=== PATIENT | male | born 1960 | race Caucasian/White ===

== ENCOUNTER → 2016-08-22 | Outpatient (CLI) | payer MEDICAID ==
[2016-08-22 18:40] LABS: ALANINE AMINOTRANSFERASE 26 U/L (21-72); ALBUMIN 3.4 g/dL (3.5-5.0); ALKALINE PHOSPHATASE 143 U/L (38-126); ANION GAP 9 (5-19); ASPARTATE AMINO TRANSFERASE 27 U/L (17-59); BILIRUBIN,TOTAL 0.3 mg/dL (0.2-1.3); BLOOD UREA NITROGEN 24 mg/dL (7-20); CALCIUM 8.9 mg/dL (8.4-10.2); CARBON DIOXIDE 28 mmol/L (22-30); CHLORIDE 100 mmol/L (98-107); CREATININE RESULT 1.35 mg/dL (0.52-1.25); GLUCOSE 75 mg/dL (75-110); POTASSIUM 5.4 mmol/L (3.6-5.0); SODIUM 137.3 mmol/L (137-145); TOTAL PROTEIN 7.3 g/dL (6.3-8.2)
== END ==
LOC: OD 17:09
PROVIDERS: ATTEND Internal Medicine Gastroenterology
DX: K70.31 Alcoholic cirrhosis of liver with ascites (principal)
CPT/HCPCS: 36415; 80048; 80076; 85610

== ENCOUNTER → 2016-09-24 | Outpatient (CLI) | payer MEDICAID ==
[2016-09-24 19:07] LABS: PROTHROMBIN TIME 13.4 SEC (11.4-15.4)
[2016-09-24 19:31] LABS: ALANINE AMINOTRANSFERASE 19 U/L (21-72); ALBUMIN 3.7 g/dL (3.5-5.0); ALKALINE PHOSPHATASE 142 U/L (38-126); ANION GAP 9 (5-19); ASPARTATE AMINO TRANSFERASE 33 U/L (17-59); BILIRUBIN,TOTAL 0.4 mg/dL (0.2-1.3); BLOOD UREA NITROGEN 31 mg/dL (7-20); CALCIUM 9.4 mg/dL (8.4-10.2); CARBON DIOXIDE 26 mmol/L (22-30); CHLORIDE 102 mmol/L (98-107); CREATININE RESULT 1.52 mg/dL (0.52-1.25); GLUCOSE 93 mg/dL (75-110); POTASSIUM 5.9 mmol/L (3.6-5.0); SODIUM 137.3 mmol/L (137-145); TOTAL PROTEIN 7.9 g/dL (6.3-8.2)
== END ==
LOC: OD 17:32
PROVIDERS: ATTEND Internal Medicine Gastroenterology
DX: K70.31 Alcoholic cirrhosis of liver with ascites (principal)
CPT/HCPCS: 36415; 80048; 80076; 85610

== ENCOUNTER → 2017-01-22 | Outpatient (CLI) | payer MEDICAID ==
--- NOTE | 2017-01-22 17:40 | RADIOLOGY REPORT (SQ) ---
EXAM DESCRIPTION: LUMBAR SPINE COMPLETE COMPLETED DATE/TIME: 01/22/2017 5:32 pm REASON FOR STUDY: LUMBAGO WITH SCIATICA, UNSPECIFIED SIDE G89.29 OTHER CHRONIC PAIN M54.40 LUMBAGO WITH SCIATICA, UNSPECIFIED SIDE COMPARISON: None. NUMBER OF VIEWS: Five views including obliques. TECHNIQUE: AP, lateral, oblique, and sacral radiographic images acquired of the lumbar spine. LIMITATIONS: None. FINDINGS: MINERALIZATION: Normal. SEGMENTATION: Normal. No transitional anatomy. ALIGNMENT: Normal. VERTEBRAE: There is a mild compression deformity at L3 with slight compression of the superior endpla te. There is approximately 40% loss of height at L4. Age of these are indeterminate. There is slig ht wedging anteriorly of L1 as well. DISCS: There is mild multilevel spondylosis. Changes are most prominent at L5-S1. POSTERIOR ELEMENTS: Pedicles and facets are intact. No pars defect or posterior arch defects. HARDWARE: None in the spine. PARASPINAL SOFT TISSUES: Normal. PELVIS: Intact as visualized. No fractures or worrisome bone lesions. SI joints intact. OTHER: No other significant finding. IMPRESSION: Multiple wedge deformities in the lumbar spine as described. Changes are most prominent at L4 with there is approximately 40% loss of height. Age of these are indeterminate. TECHNICAL DOCUMENTATION: JOB ID: [id number] [email or web address]- All Rights Reserved
== END ==
LOC: OD 17:10
PROVIDERS: ATTEND Internal Medicine
DX: M54.40 Lumbago with sciatica, unspecified side (principal); G89.29 Other chronic pain
CPT/HCPCS: 72110

== ENCOUNTER → 2017-01-28 | Outpatient (CLI) | payer MEDICAID ==
[2017-01-28 18:03] LABS: ABSOLUTE BASOPHILS # (AUTO) 0.1 10^3/uL (0.0-0.2); ABSOLUTE EOSINOPHILS # (AUTO) 0.5 10^3/uL (0.0-0.6); ABSOLUTE LYMPHOCYTES (AUTO) 2.5 10^3/uL (0.5-4.7); ABSOLUTE MONOCYTES (AUTO) 0.9 10^3/uL (0.1-1.4); ABSOLUTE NEUT (AUTO) 5.3 10^3/uL (1.7-8.2); BASOPHILS % (AUTO) 1.1 % (0-2); EOSINOPHILS % (AUTO) 5.1 % (0-6); HEMATOCRIT 32.5 % (37.9-51.0); HEMOGLOBIN 10.8 g/dL (13.5-17.0); HGB HCT DIFFERENCE -0.1; LYMPHOCYTES % (AUTO) 26.7 % (13-45); MEAN CORPUSCULAR HEMOGLOBIN 31.2 pg (27.0-33.4); MEAN CORPUSCULAR HGB CONC 33.2 g/dL (32.0-36.0); MEAN CORPUSCULAR VOLUME 94 fl (80-97); MONOCYTES % (AUTO) 9.3 % (3-13); RED BLOOD COUNT 3.45 10^6/uL (4.35-5.55); RED CELL DISTRIBUTION WIDTH 13.6 % (11.5-14.0); SEGMENTED NEUTROPHILS % (AUTO) 57.8 % (42-78); WHITE BLOOD COUNT 9.2 10^3/uL (4.0-10.5)
[2017-01-28 18:23] LABS: ALANINE AMINOTRANSFERASE 25 U/L (21-72); ALKALINE PHOSPHATASE 194 U/L (38-126); ANION GAP 10 (5-19); ASPARTATE AMINO TRANSFERASE 29 U/L (17-59); BILIRUBIN,DIRECT 0.4 mg/dL (0.0-0.4); BILIRUBIN,TOTAL 0.4 mg/dL (0.2-1.3); BLOOD UREA NITROGEN 33 mg/dL (7-20); CALCIUM 9.2 mg/dL (8.4-10.2); CARBON DIOXIDE 25 mmol/L (22-30); CHLORIDE 101 mmol/L (98-107); CREATININE RESULT 1.86 mg/dL (0.52-1.25); GLUCOSE 86 mg/dL (75-110); POTASSIUM 4.9 mmol/L (3.6-5.0); SODIUM 136.1 mmol/L (137-145); TOTAL PROTEIN 7.8 g/dL (6.3-8.2)
== END ==
LOC: OD 17:11
PROVIDERS: ATTEND Physician Assistant Surgical
DX: N19 Unspecified kidney failure (principal); K70.31 Alcoholic cirrhosis of liver with ascites
CPT/HCPCS: 36415; 80053; 85025

== ENCOUNTER → 2017-03-29 | Outpatient (CLI) | payer MEDICAID ==
--- NOTE | 2017-03-29 11:48 | RADIOLOGY REPORT (SQ) ---
EXAM DESCRIPTION: U/S RETROPERITON (RENAL/AORTA) COMPLETED DATE/TIME: 03/29/2017 11:34 am REASON FOR STUDY: CKD III (N18.3) N18.3 CHRONIC KIDNEY DISEASE, STAGE 3 (MODERATE) R31.9 HEMATURIA , UNSPECIFIED K74.60 UNSPECIFIED CIRRHOSIS OF LIVER COMPARISON: None. TECHNIQUE: Dynamic and static grayscale images acquired of the kidneys and bladder and recorded on P ACS. Additional selected color Doppler and spectral images recorded. LIMITATIONS: None. FINDINGS: RIGHT KIDNEY: The right kidney measures 9.3 cm in length. Echogenicity is mildly increa sed. No solid or suspicious masses. No hydronephrosis. No calcifications. LEFT KIDNEY: The left kidney measures 9.4 cm in length. Echogenicity is mildly increased. No risa id or suspicious masses. No hydronephrosis. No calcifications. BLADDER: No masses. OTHER FINDINGS: No other significant finding. IMPRESSION: Mild increased echogenicity in both kidneys. No other significant findings. TECHNICAL DOCUMENTATION: JOB ID: [id number] [employer]- All Rights Reserved
== END ==
LOC: RAD 10:54
PROVIDERS: ATTEND Internal Medicine Nephrology
DX: N18.3 Chronic kidney disease, stage 3 (moderate) (principal); R31.9 Hematuria, unspecified; K74.60 Unspecified cirrhosis of liver
CPT/HCPCS: 76770

== ENCOUNTER → 2017-04-04 | Outpatient (CLI) | payer MEDICAID ==
[2017-04-04 18:25] LABS: HEMATOCRIT 32.3 % (37.9-51.0); HEMOGLOBIN 11.3 g/dL (13.5-17.0); HGB HCT DIFFERENCE 1.6; MEAN CORPUSCULAR HEMOGLOBIN 31.7 pg (27.0-33.4); MEAN CORPUSCULAR HGB CONC 34.9 g/dL (32.0-36.0); MEAN CORPUSCULAR VOLUME 91 fl (80-97); RED BLOOD COUNT 3.55 10^6/uL (4.35-5.55); RED CELL DISTRIBUTION WIDTH 13.1 % (11.5-14.0)
[2017-04-04 18:42] LABS: ANION GAP 10 (5-19); BLOOD UREA NITROGEN 24 mg/dL (7-20); CALCIUM 9.9 mg/dL (8.4-10.2); CARBON DIOXIDE 25 mmol/L (22-30); CHLORIDE 98 mmol/L (98-107); CREATININE RESULT 1.35 mg/dL (0.52-1.25); GLUCOSE 109 mg/dL (75-110); POTASSIUM 4.6 mmol/L (3.6-5.0); SODIUM 133.1 mmol/L (137-145)
[2017-04-04 18:46] LABS: APPEARANCE,URINE CLEAR; BILIRUBIN,URINE NEGATIVE (NEGATIVE); GLUCOSE, URINE NEGATIVE (NEGATIVE); KETONES,URINE NEGATIVE (NEGATIVE); LEUKOCYTE ESTERASE,URINE NEGATIVE (NEGATIVE); NITRITE,URINE NEGATIVE (NEGATIVE); PROTEIN,URINE 30 mg/dL (NEGATIVE); URINE SPECIFIC GRAVITY 1.004; UROBILINOGEN,URINE NEGATIVE mg/dL (<2.0)
[2017-04-06 13:38] LABS: CREATININE URINE 35.8 mg/dL (Not Estab.); MICROALBUMIN URINE 93.9 ug/mL (Not Estab.)
== END ==
LOC: OD 17:23
PROVIDERS: ATTEND Physician Assistant Medical
DX: N18.3 Chronic kidney disease, stage 3 (moderate) (principal); E87.5 Hyperkalemia; R31.9 Hematuria, unspecified
CPT/HCPCS: 36415; 80048; 81001; 82043; 82570; 85027

== ENCOUNTER → 2017-04-30 | Outpatient (CLI) | payer MEDICAID ==
--- NOTE | 2017-04-30 11:47 | RADIOLOGY REPORT (SQ) ---
EXAM DESCRIPTION: U/S ABDOMEN COMPLETE W/O DOP COMPLETED DATE/TIME: 04/30/2017 9:28 am REASON FOR STUDY: ALCOHOLIC CIRRHOSIS OF LIVER WITH ASCITES K70.31 ALCOHOLIC CIRRHOSIS OF LIVER WIT H ASCITES COMPARISON: Bilateral renal ultrasound 03/29/2017 TECHNIQUE: Dynamic and static grayscale images acquired of the abdomen and recorded on PACS. Additio nal selected color Doppler and spectral images recorded. LIMITATIONS: Midline bowel gas FINDINGS: PANCREAS: Midline pancreas unremarkable LIVER: No masses. Echotexture normal. LIVER VASCULATURE: Normal directional flow of the main portal vein and hepatic veins. GALLBLADDER: No stones. Normal wall thickness. No pericholecystic fluid. ULTRASOUND-DETECTED MIJARES'S SIGN: Negative. INTRAHEPATIC DUCTS AND COMMON DUCT: There is prominence of the common bile duct at the ted hepatis, common duct measures 9 to 10 mm in diameter. Distal most common duct not well seen. Distal ductal stone or stricture cannot be excluded INFERIOR VENA CAVA: Not well seen AORTA: No aneurysm. RIGHT KIDNEY: Normal size, 9.4 cm in length. Mild increased cortical echogenicity No solid or zheng spicious masses. No hydronephrosis. No calcifications. LEFT KIDNEY: Normal size, 9.4 cm in length mild increased cortical echogenicity No solid or susp icious masses. No hydronephrosis. No calcifications. SPLEEN: Normal size. No solid masses. PERITONEAL AND PLEURAL SPACES: No ascites or effusions. OTHER: No other significant finding. IMPRESSION: Mild extrahepatic biliary ductal dilatation. Distal common duct not well seen. Distal ductal stone or stricture cranial be excluded Mild increased cortical echogenicity both kidneys. TECHNICAL DOCUMENTATION: JOB ID: [id number] [employer]- All Rights Reserved
== END ==
LOC: RAD 08:00
PROVIDERS: ATTEND Internal Medicine Gastroenterology
DX: K70.31 Alcoholic cirrhosis of liver with ascites (principal)
CPT/HCPCS: 76700

== ENCOUNTER → 2017-07-17 | Outpatient (CLI) | payer MEDICAID ==
[2017-07-17 10:53] LABS: HEMOGLOBIN 11.3 g/dL (13.5-17.0); HGB HCT DIFFERENCE 0.9; MEAN CORPUSCULAR HEMOGLOBIN 31.8 pg (27.0-33.4); MEAN CORPUSCULAR HGB CONC 34.3 g/dL (32.0-36.0); MEAN CORPUSCULAR VOLUME 93 fl (80-97); RED BLOOD COUNT 3.56 10^6/uL (4.35-5.55); RED CELL DISTRIBUTION WIDTH 13.6 % (11.5-14.0); WHITE BLOOD COUNT 11.5 10^3/uL (4.0-10.5)
[2017-07-17 10:53] LABS: APPEARANCE,URINE CLEAR; BILIRUBIN,URINE NEGATIVE (NEGATIVE); GLUCOSE, URINE NEGATIVE (NEGATIVE); KETONES,URINE NEGATIVE (NEGATIVE); LEUKOCYTE ESTERASE,URINE NEGATIVE (NEGATIVE); NITRITE,URINE NEGATIVE (NEGATIVE); PROTEIN,URINE NEGATIVE (NEGATIVE); URINE SPECIFIC GRAVITY 1.004; UROBILINOGEN,URINE NEGATIVE mg/dL (<2.0)
[2017-07-17 11:28] LABS: ANION GAP 12 (5-19); BLOOD UREA NITROGEN 18 mg/dL (7-20); CALCIUM 9.6 mg/dL (8.4-10.2); CARBON DIOXIDE 23 mmol/L (22-30); CHLORIDE 103 mmol/L (98-107); CREATININE RESULT 1.37 mg/dL (0.52-1.25); GLUCOSE 92 mg/dL (75-110); POTASSIUM 5.7 mmol/L (3.6-5.0); SODIUM 137.7 mmol/L (137-145)
== END ==
LOC: OD 09:19
PROVIDERS: ATTEND Physician Assistant Medical
DX: E87.5 Hyperkalemia (principal); N18.3 Chronic kidney disease, stage 3 (moderate); R31.9 Hematuria, unspecified
CPT/HCPCS: 36415; 80048; 81001; 84132; 85027

== ENCOUNTER → 2017-10-25 | Outpatient (CLI) | payer MEDICAID ==
[2017-10-25 17:07] LABS: HEMATOCRIT 34.6 % (37.9-51.0); HEMOGLOBIN 11.7 g/dL (13.5-17.0); MEAN CORPUSCULAR HEMOGLOBIN 31.5 pg (27.0-33.4); MEAN CORPUSCULAR HGB CONC 33.8 g/dL (32.0-36.0); MEAN CORPUSCULAR VOLUME 93 fl (80-97); PLATELET COUNT 277 10^3/uL (150-450); RED BLOOD COUNT 3.71 10^6/uL (4.35-5.55); RED CELL DISTRIBUTION WIDTH 13.5 % (11.5-14.0)
[2017-10-25 17:39] LABS: ANION GAP 13 (5-19); BLOOD UREA NITROGEN 23 mg/dL (7-20); CALCIUM 9.8 mg/dL (8.4-10.2); CARBON DIOXIDE 23 mmol/L (22-30); CHLORIDE 99 mmol/L (98-107); GLUCOSE 98 mg/dL (75-110); POTASSIUM 4.8 mmol/L (3.6-5.0); SODIUM 134.9 mmol/L (137-145)
== END ==
LOC: OD 15:47
PROVIDERS: ATTEND Physician Assistant Medical
DX: N18.3 Chronic kidney disease, stage 3 (moderate) (principal); E87.5 Hyperkalemia
CPT/HCPCS: 36415; 80048; 85027

== ENCOUNTER → 2018-03-04 | Outpatient (CLI) | payer MEDICAID ==
[2018-03-04 18:01] LABS: INTERNATIONAL RATION (INR) 1.01; PROTHROMBIN TIME 13.9 SEC (11.4-15.4)
[2018-03-04 18:04] LABS: APPEARANCE,URINE CLEAR; BILIRUBIN,URINE NEGATIVE (NEGATIVE); COLOR,URINE STRAW; GLUCOSE, URINE NEGATIVE (NEGATIVE); KETONES,URINE NEGATIVE (NEGATIVE); LEUKOCYTE ESTERASE,URINE NEGATIVE (NEGATIVE); NITRITE,URINE NEGATIVE (NEGATIVE); PROTEIN,URINE NEGATIVE (NEGATIVE); URINE SPECIFIC GRAVITY 1.005; UROBILINOGEN,URINE NEGATIVE mg/dL (<2.0)
[2018-03-04 18:06] LABS: ABSOLUTE BASOPHILS # (AUTO) 0.1 10^3/uL (0.0-0.2); ABSOLUTE EOSINOPHILS # (AUTO) 0.2 10^3/uL (0.0-0.6); ABSOLUTE LYMPHOCYTES (AUTO) 1.8 10^3/uL (0.5-4.7); ABSOLUTE MONOCYTES (AUTO) 0.9 10^3/uL (0.1-1.4); ABSOLUTE NEUT (AUTO) 5.2 10^3/uL (1.7-8.2); BASOPHILS % (AUTO) 0.9 % (0-2); EOSINOPHILS % (AUTO) 2.6 % (0-6); HEMATOCRIT 31.1 % (37.9-51.0); HEMOGLOBIN 10.9 g/dL (13.5-17.0); LYMPHOCYTES % (AUTO) 22.1 % (13-45); MEAN CORPUSCULAR HEMOGLOBIN 31.7 pg (27.0-33.4); MEAN CORPUSCULAR HGB CONC 34.9 g/dL (32.0-36.0); MEAN CORPUSCULAR VOLUME 91 fl (80-97); MONOCYTES % (AUTO) 11.1 % (3-13); PLATELET COUNT 399 10^3/uL (150-450); RED BLOOD COUNT 3.43 10^6/uL (4.35-5.55); RED CELL DISTRIBUTION WIDTH 12.7 % (11.5-14.0); SEGMENTED NEUTROPHILS % (AUTO) 63.3 % (42-78); TOTAL CELLS COUNTED % (AUTO) 100 %; WHITE BLOOD COUNT 8.2 10^3/uL (4.0-10.5)
[2018-03-04 18:08] LABS: HEMATOCRIT 31.1 % (37.9-51.0); HEMOGLOBIN 10.9 g/dL (13.5-17.0); MEAN CORPUSCULAR HEMOGLOBIN 31.7 pg (27.0-33.4); MEAN CORPUSCULAR HGB CONC 34.9 g/dL (32.0-36.0); MEAN CORPUSCULAR VOLUME 91 fl (80-97); PLATELET COUNT 399 10^3/uL (150-450); RED BLOOD COUNT 3.43 10^6/uL (4.35-5.55); RED CELL DISTRIBUTION WIDTH 12.7 % (11.5-14.0); WHITE BLOOD COUNT 8.2 10^3/uL (4.0-10.5)
[2018-03-04 18:19] LABS: ALANINE AMINOTRANSFERASE 25 U/L (21-72); ALBUMIN 4.1 g/dL (3.5-5.0); ALKALINE PHOSPHATASE 173 U/L (38-126); ASPARTATE AMINO TRANSFERASE 30 U/L (17-59); BILIRUBIN,DIRECT 0.3 mg/dL (0.0-0.4); BILIRUBIN,TOTAL 0.3 mg/dL (0.2-1.3); TOTAL PROTEIN 8.2 g/dL (6.3-8.2)
[2018-03-04 18:21] LABS: ANION GAP 13 (5-19); BLOOD UREA NITROGEN 23 mg/dL (7-20); CARBON DIOXIDE 24 mmol/L (22-30); CHLORIDE 99 mmol/L (98-107); GLUCOSE 95 mg/dL (75-110); SODIUM 136.1 mmol/L (137-145)
== END ==
LOC: OD 17:06
PROVIDERS: ATTEND Physician Assistant Medical
DX: N18.3 Chronic kidney disease, stage 3 (moderate) (principal); E87.5 Hyperkalemia; K70.30 Alcoholic cirrhosis of liver without ascites
CPT/HCPCS: 36415; 80048; 80076; 81001; 85025; 85027; 85610

== ENCOUNTER → 2018-05-28 | Outpatient (CLI) | payer MEDICAID ==
--- NOTE | 2018-05-28 15:35 | RADIOLOGY REPORT (SQ) ---
EXAM DESCRIPTION: NM BONE SCAN LIMITED COMPLETED DATE/TIME: 05/28/2018 2:17 pm REASON FOR STUDY: COLLASPED VERTEBRA, NOT ELSEWHERE CLASSIFIED, THORACIC REGION M48.54XA COLLAPSED VERTEBRA, NEC, THORACIC REGION, INIT COMPARISON: No recent plain films are available for comparison Lumbar spine films of 01/22/2017 RADIONUCLIDE AND DOSE: 19.5 millicuries Tc99m MDP. The route of agent administration: Intravenous. ADDITIONAL DRUGS AND DOSES: None. TECHNIQUE: Routine delayed images at 3 hours post radionuclide injection acquired of the bony skelet on including anterior and posterior whole-body projections and additional focused images as needed. LIMITATIONS: None. FINDINGS: Bandlike increased uptake is present over the T4 level worrisome for acute or subacute com pression fracture vertebral body. Bandlike increased uptake is present at the L4 level worrisome for acute or subacute compression frac ture vertebral body. No increased uptake over the ribs or sternum, no increased uptake over the visualized bony pelvis. IMPRESSION: Bandlike increased uptake at the T4 level, and L4 level worrisome for acute or subacute compression fractures. COMMENT: Quality measure 147: Current bone scan is compared with any available plain radiographs, p rior bone scans, and CT/MRI. TECHNICAL DOCUMENTATION: JOB ID: [id number] [employer]- All Rights Reserved Reading location - IP/workstation name: [email or web address]
== END ==
LOC: RAD 08:10
PROVIDERS: ATTEND Family Medicine
DX: M48.54XA Collapsed vertebra, not elsewhere classified, thoracic region, initial encounter for fracture (principal)
CPT/HCPCS: 78305; A9561; Q9969

== ENCOUNTER → 2018-06-10 | Outpatient (CLI) | payer MEDICAID ==
--- NOTE | 2018-06-10 08:57 | RADIOLOGY REPORT (SQ) ---
EXAM DESCRIPTION: U/S ABDOMEN LIMITED W/O DOP COMPLETED DATE/TIME: 06/10/2018 8:37 am REASON FOR STUDY: CIRRHOSIS(ALCOHOLIC) OF LIVER WITHOUT ASCITES K70.30 ALCOHOLIC CIRRHOSIS OF LIVER WITHOUT ASCITES COMPARISON: Abdominal ultrasound 04/30/2017 CT angio chest 06/29/2010 TECHNIQUE: Dynamic and static grayscale images acquired of the abdomen and recorded on PACS. Additio nal selected color Doppler and spectral images recorded. LIMITATIONS: Midline bowel gas, limited acoustic window FINDINGS: PANCREAS: Midline pancreas unremarkable LIVER: Normal size, nodular contour with mild increased echogenicity likely from diffuse hepatocellul ar disease. No intrahepatic biliary ductal dilatation. No focal masses LIVER VASCULATURE: Normal directional flow of the main portal vein and hepatic veins. GALLBLADDER: Distended, minimal sludge in the gallbladder. No shadowing stones. No gallbladder wall thickening or pericholecystic fluid ULTRASOUND-DETECTED MIJARES'S SIGN: Negative. INTRAHEPATIC DUCTS AND COMMON DUCT: Common bile duct at the ted hepatis is 9 mm in diameter which i s prominent. Distal most common duct not well seen. Distal ductal stone or stricture could not be e xcluded. INFERIOR VENA CAVA: Normal flow. AORTA: No aneurysm. RIGHT KIDNEY: Diffuse cortical thinning, right kidney 9 cm in length with increased cortical echogen icity. No right hydronephrosis. No gross intrarenal stones. PERITONEAL AND RIGHT PLEURAL SPACE: No ascites or effusions. OTHER: No other significant findings. IMPRESSION: In keeping normal size liver with nodular contour worrisome for diffuse hepatocellular d isease/ cirrhosis Distended gallbladder with sludge. And common bile duct prominent. Distal common duct not well seen. Distal ductal stone or stricture could not be excluded. TECHNICAL DOCUMENTATION: JOB ID: [id number] [employer]- All Rights Reserved Reading location - IP/workstation name: [email or web address]
== END ==
LOC: RAD 08:00
PROVIDERS: ATTEND Internal Medicine Gastroenterology
DX: K70.30 Alcoholic cirrhosis of liver without ascites (principal)
CPT/HCPCS: 76705

== ENCOUNTER → 2018-07-29 | Outpatient (CLI) | payer MEDICAID ==
[2018-07-29 10:53] LABS: ANION GAP 9 (5-19); BLOOD UREA NITROGEN 20 mg/dL (7-20); CALCIUM 9.2 mg/dL (8.4-10.2); CARBON DIOXIDE 28 mmol/L (22-30); CHLORIDE 102 mmol/L (98-107); GLUCOSE 99 mg/dL (75-110); POTASSIUM 5.2 mmol/L (3.6-5.0)
== END ==
LOC: OD 10:10
PROVIDERS: ATTEND Orthopaedic Surgery
DX: E87.5 Hyperkalemia (principal)
CPT/HCPCS: 36415; 80048

== ENCOUNTER 2018-07-30 05:39 | Day surgery (SDC) | payer MEDICAID ==
[2018-07-23 11:58] LABS: HEMOGLOBIN 11.9 g/dL (13.5-17.0); MEAN CORPUSCULAR VOLUME 91 fl (80-97); PLATELET COUNT 326 10^3/uL (150-450); RED BLOOD COUNT 3.84 10^6/uL (4.35-5.55); RED CELL DISTRIBUTION WIDTH 13.7 % (11.5-14.0); WHITE BLOOD COUNT 9.8 10^3/uL (4.0-10.5)
--- NOTE | 2018-07-23 12:00 | EKG REPORT ---
SEVERITY:- NORMAL ECG - SINUS RHYTHM : Confirmed by: Heather Phillips 23-Jul-2018 11:59:53
[2018-07-23 12:24] LABS: ANION GAP 15 (5-19); BLOOD UREA NITROGEN 24 mg/dL (7-20); CALCIUM 9.7 mg/dL (8.4-10.2); CARBON DIOXIDE 24 mmol/L (22-30); CHLORIDE 101 mmol/L (98-107); GLUCOSE 88 mg/dL (75-110); SODIUM 140.3 mmol/L (137-145)
[2018-07-23 12:32] LABS: POTASSIUM 6.5 mmol/L (3.6-5.0)
[~2018-07-30 05:39] MED LIST: CEFAZOLIN 2 GM/D5W RTU 2 GM/50 ML RTUPB IV ONE; CEFAZOLIN 2 GM/D5W RTU 2 GM/50 ML RTUPB IV PRN; LACTATED RINGERS 1000 ML IV PRN; LIDOCAINE 0.5% INJ-PF (5 MG/ML) 50 ML SDV SUBCUT PRN
[2018-07-30] MEDS ORDERED: BUPIVACAINE HCL 0.5 % INJ/PF 30 ML SDV ONE (06:39)
[2018-07-30] MEDS ORDERED: LIDOCAINE 1% INJ-PF (10 MG/ML) 30 ML SDV ONE (06:39)
[2018-07-30] MEDS ORDERED: MIDAZOLAM 2 MG/2 ML INJ ONE (07:09)
[2018-07-30] MEDS ORDERED: FENTANYL CITRATE INJ/PF 100 MCG/2 ML AMPUL ONE (07:09)
[2018-07-30] MEDS ORDERED: PROPOFOL INJ 200 MG/20 ML VIAL IV ONE (07:09)
[2018-07-30] MEDS ORDERED: FENTANYL CITRATE INJ/PF 100 MCG/2 ML AMPUL IV PRN ×3 (08:00)
[2018-07-30] MEDS ORDERED: MORPHINE SULFATE 10 MG/ML INJ IV PRN (08:00)
[2018-07-30] MEDS ORDERED: MEPERIDINE HCL/PF INJ 25 MG/1 ML DISP.SYRIN IV PRN (08:00)
[2018-07-30] MEDS ORDERED: DIPHENHYDRAMINE HCL 50 MG/ML VIAL IV PRN (08:00)
[2018-07-30] MEDS ORDERED: PROMETHAZINE HCL INJ 25 MG/1 ML VIAL IV PRN ×2 (08:00)
[2018-07-30] MEDS ORDERED: ACETAMINOPHEN 325 MG TABLET ONE (09:10)
--- NOTE | 2018-07-30 09:33 | RADIOLOGY REPORT (SQ) ---
EXAM DESCRIPTION: L SPINE 2 VIEWS COMPLETED DATE/TIME: 07/30/2018 8:58 am REASON FOR STUDY: KYPHOPLASTY L4 ASST WITH FLUORO IN OR M80.08XA AGE-REL OSTEOPOR W CURRENT PATH FR ACTURE, VERTEBRA( COMPARISON: None. FLUOROSCOPY TIME: 0.9 minutes 4 images saved to PACS. TECHNIQUE: Intra-operative images acquired during surgical procedure to evaluate progress. NUMBER OF IMAGES: 4 LIMITATIONS: None. FINDINGS: Intraoperative images obtained for lumbar kyphoplasty. Please see operative report for de tailed dictation. IMPRESSION: IMAGE(S) OBTAINED DURING PROCEDURE. COMMENT: Quality ID [id number]: Final reports for procedures using fluoroscopy that document radiation exp osure indices, or exposure time and number of fluorographic images (if radiation exposure indices are not available) Please consult full operative report of the attending physician for description of the procedure. TECHNICAL DOCUMENTATION: JOB ID: [id number] [employer]- All Rights Reserved Reading location - IP/workstation name: [email or web address]
[2018-07-30] MEDS ORDERED: ACETAMINOPHEN 325 MG TABLET PO ONE (10:00)
[2018-07-30 10:20] VITALS: BP 126/79
--- NOTE | 2018-07-30 10:22 | RADIOLOGY REPORT (SQ) ---
EXAM DESCRIPTION: NO CHG FLUORO COMPLETE DATE/TIME: 07/30/2018 8:58 am REASON FOR STUDY: KYPHOPLASTY L4 ASST WITH FLUORO IN OR M80.08XA AGE-REL OSTEOPOR W CURRENT PATH FR ACTURE, VERTEBRA( FINDINGS: Please see combined report for performance of procedure and radiologic supervision and int erpretation. IMPRESSION: Please see combined report for performance of procedure and radiologic supervision and i nterpretation. Reading location - IP/workstation name: [facility]
--- NOTE | 2018-07-30 12:57 | OPERATIVE REPORT E ---
Operative Report NAME: ANNA ALFONSO : 1960 AGE: 57Y DATE OF SURGERY: 07/30/2018 ROOM: PREOPERATIVE DIAGNOSIS: L4 OSTEOPOROTIC COMPRESSION FRACTURE. POSTOPERATIVE DIAGNOSIS: L4 OSTEOPOROTIC COMPRESSION FRACTURE. OPERATION: L4 kyphoplasty and biopsy. SURGEON: JEANNINE CASTRO M.D. ANESTHESIA: MAC anesthetic. ESTIMATED BLOOD LOSS: Less than 5 mL. INDICATIONS: Patient is a 57-year-old male with osteoporosis, failed conservative management. After discussion with the patient of the risks and indications and alternatives; risks include but are not limited to infection, blood loss, damage to nerves or blood vessels, cement extrusion anteriorly which can lead to and posteriorly which can lead to paralysis, adjacent level fractures. Patient understood these risks and wished to pursue the option of surgical intervention. OPERATIVE TECHNIQUE: Patient was brought into the room, placed under anesthesia. Received 2 grams of Ancef within an hour of cut time. had SCDs and a warm blanket placed on him. Patient was placed in the prone position on the radiolucent table with bumps inserted underneath the chest and iliac crest. Mild and lower back were prepped and draped in the usual sterile fashion. Two C-arms are utilized, one in AP and one in lateral position to visualize the vertebral body at L4. After completion of prepping and draping, the Subcuticular tissues infiltrated with 0.5% Marcaine 1% lidocaine and then a small stab incision with an 11 blade was carried out laterally to the pedicle. A transpedicular approach was utilized into the vertebral body. A biopsy was obtained from the vertebral body and sent off to pathology for permanent specimen. The wounds were then inserted, expanded. After that, the cement is mixed and allowed to harden to a putty-like consistency. It was introduced into the vertebral body and felt to have good fill and good interdigitation. After the cement hardened, the cameras were removed. Sites were cleansed, dressed with Benzoin and Steri-Strips, 4 x 4, and tape and patient's wound is dressed. Patient was then brought to the supine position, brought to the recovery room. Condition is stable. Biopsy of L4 sent off for permanent specimen. DICTATING PHYSICIAN: JEANNINE CASTRO M.D. [id number] PHY#: [id number] ID: [id number] JOB#: [id number] ACCT: [id number] cc:JEANNINE CASTRO M.D. > JOHNNIE
== END 2018-07-30 10:05 | disposition home or self-care (01) ==
LOC: OROUT 05:39
PROVIDERS: ATTEND Orthopaedic Surgery
DX: M80.08XA Age-related osteoporosis with current pathological fracture, vertebra(e), initial encounter for fracture (principal); M54.16 Radiculopathy, lumbar region; I74.8 Embolism and thrombosis of other arteries; J44.9 Chronic obstructive pulmonary disease, unspecified; F17.210 Nicotine dependence, cigarettes, uncomplicated; Z79.899 Other long term (current) drug therapy; Z79.891 Long term (current) use of opiate analgesic
CPT/HCPCS: 93005; 36415 ×2; 84132; 85027; 80048; 87070; 88305 ×2; 72100; 93010; 22514; C1713; J3490 ×3; J2250; J3010; J2704; J0690; 1936

== ENCOUNTER → 2018-08-29 | Outpatient (CLI) | payer MEDICAID ==
[2018-08-29 14:14] LABS: HEMATOCRIT 32.5 % (37.9-51.0); HEMOGLOBIN 11.2 g/dL (13.5-17.0); MEAN CORPUSCULAR HEMOGLOBIN 31.2 pg (27.0-33.4); MEAN CORPUSCULAR HGB CONC 34.4 g/dL (32.0-36.0); MEAN CORPUSCULAR VOLUME 91 fl (80-97); PLATELET COUNT 332 10^3/uL (150-450); RED BLOOD COUNT 3.59 10^6/uL (4.35-5.55); RED CELL DISTRIBUTION WIDTH 13.5 % (11.5-14.0); WHITE BLOOD COUNT 9.3 10^3/uL (4.0-10.5)
[2018-08-29 14:45] LABS: APPEARANCE,URINE CLEAR; BILIRUBIN,URINE NEGATIVE (NEGATIVE); COLOR,URINE YELLOW; GLUCOSE, URINE NEGATIVE (NEGATIVE); KETONES,URINE NEGATIVE (NEGATIVE); LEUKOCYTE ESTERASE,URINE NEGATIVE (NEGATIVE); NITRITE,URINE NEGATIVE (NEGATIVE); PROTEIN,URINE NEGATIVE (NEGATIVE); URINE SPECIFIC GRAVITY 1.008; UROBILINOGEN,URINE NEGATIVE mg/dL (<2.0)
[2018-08-29 14:47] LABS: ANION GAP 10 (5-19); BLOOD UREA NITROGEN 23 mg/dL (7-20); CALCIUM 9.9 mg/dL (8.4-10.2); CARBON DIOXIDE 27 mmol/L (22-30); CHLORIDE 102 mmol/L (98-107); GLUCOSE 116 mg/dL (75-110); POTASSIUM 5.6 mmol/L (3.6-5.0); SODIUM 139.2 mmol/L (137-145)
== END ==
LOC: OD 12:59
PROVIDERS: ATTEND Physician Assistant Medical
DX: N18.3 Chronic kidney disease, stage 3 (moderate) (principal); E87.5 Hyperkalemia; D64.9 Anemia, unspecified
CPT/HCPCS: 36415; 80048; 81001; 82728; 83540; 83550; 85027

== ENCOUNTER 2019-07-16 09:36 | Inpatient (IN) | payer MEDICAID ==
--- NOTE | 2019-07-16 10:00 | ER Document Report ---
ED Medical Screen (RME) - General Chief Complaint: Leg Pain Stated Complaint: RIB PAIN Time Seen by Provider: 07/16/19 09:54 Primary Care Provider: LEONARD BELL PA-C [Primary Care Provider] - Follow up as needed Mode of Arrival: Medic Information source: Patient Notes: 58-year-old male presented to ED for complaint of pain to the right wrist hip and ribs. He states he tripped over a cord yesterday about 1 PM crawled into his bed thought he would be okay but this morning about 3:00 he could not get out of his bed. He states he took his morphine about 330 his Percocet about 830 and EMS gave him some for pain on the way to the hospital. He states he cannot move his legs and it hurts to breathe and his right wrist hurts. Patient is alert oriented respirations regular nonlabored speaking in full sentences. I have greeted and performed a rapid initial assessment of this patient. A comprehensive ED assessment and evaluation of the patient, analysis of test results and completion of medical decision making process will be conducted by an additional ED providers. TRAVEL OUTSIDE OF THE [place] IN LAST 30 DAYS: No - Related Data Allergies/Adverse Reactions: No Known Allergies Allergy (Verified 06/28/16 19:35) Past Medical History - Past Medical History Cardiac Medical History: Denies: Hx Coronary Artery Disease, Hx Heart Attack, Hx Hypertension Pulmonary Medical History: Reports: Hx COPD Denies: Hx Asthma, Hx Bronchitis, Hx Pneumonia Neurological Medical History: Denies: Hx Cerebrovascular Accident, Hx Seizures GI Medical History: Reports: Hx Cirrhosis - Considered end-stage. Denies: Hx Hepatitis, Hx Hiatal Hernia, Hx Ulcer Musculoskeltal Medical History: Denies Hx Arthritis Psychiatric Medical History: Denies: Hx Depression Infectious Medical History: Denies: Hx Hepatitis Past Surgical History: Denies: Hx Open Heart Surgery, Hx Pacemaker - Immunizations Hx Diphtheria, Pertussis, Tetanus Vaccination: Yes Physical Exam - Vital signs Vitals: Temp Pulse Resp BP Pulse Ox 98.1 F 77 16 150/96 H 99 07/16/19 09:42 07/16/19 09:42 07/16/19 09:42 07/16/19 09:42 07/16/19 09:42 Course - Vital Signs Vital signs: Temp Pulse Resp BP Pulse Ox 98.1 F 77 16 150/96 H 99 07/16/19 09:42 07/16/19 09:42 07/16/19 09:42 07/16/19 09:42 07/16/19 09:42 Doctor's Discharge - Discharge Referrals: LEONARD BELL, SHIELAC [Primary Care Provider] - Follow up as needed
--- NOTE | 2019-07-16 11:46 | RADIOLOGY REPORT (SQ) ---
EXAM DESCRIPTION: WRIST RIGHT 3 VIEWS COMPLETED DATE/TIME: 07/16/2019 11:18 am REASON FOR STUDY: fall pain COMPARISON: None. NUMBER OF VIEWS: Three views. TECHNIQUE: AP, lateral, and oblique radiographic images acquired of the right wrist. LIMITATIONS: None. FINDINGS: MINERALIZATION: Normal. BONES: No acute fracture or dislocation. No worrisome bone lesions. Normal alignment. SOFT TISSUES: No soft tissue swelling. No foreign body. OTHER: No other significant finding. IMPRESSION: NEGATIVE STUDY OF THE RIGHT WRIST. NO RADIOGRAPHIC EVIDENCE OF ACUTE INJURY. TECHNICAL DOCUMENTATION: JOB ID: [id number] [employer]- All Rights Reserved Reading location - IP/workstation name: [email or web address]
--- NOTE | 2019-07-16 11:48 | RADIOLOGY REPORT (SQ) ---
EXAM DESCRIPTION: HIP RIGHT AP/LATERAL COMPLETED DATE/TIME: 07/16/2019 11:18 am REASON FOR STUDY: fall pain COMPARISON: None. NUMBER OF VIEWS: Three views. TECHNIQUE: AP pelvis and additional AP and frog-leg view of the right hip. LIMITATIONS: None. FINDINGS: MINERALIZATION: Marked osteopenia. RIGHT HIP: IM ava and traversing PN for prior fracture. No acute fracture. LEFT HIP: No fracture or dislocation. No worrisome bone lesions. PUBIS AND ISCHIUM: No fracture. PELVIS: No fracture. SACRUM: No fracture or dislocation. No worrisome bone lesions. LOWER LUMBAR SPINE: No fracture or dislocation. No worrisome bone lesions. No significant disc disea se. SOFT TISSUES: No findings. OTHER: No other significant finding. IMPRESSION: No acute fracture. TECHNICAL DOCUMENTATION: JOB ID: [id number] [employer]- All Rights Reserved Reading location - IP/workstation name: [email or web address]
[2019-07-16 11:52] LABS: APPEARANCE,URINE CLEAR; BILIRUBIN,URINE NEGATIVE (NEGATIVE); COLOR,URINE STRAW; GLUCOSE, URINE NEGATIVE (NEGATIVE); KETONES,URINE NEGATIVE (NEGATIVE); PROTEIN,URINE NEGATIVE (NEGATIVE); URINE SPECIFIC GRAVITY 1.005; UROBILINOGEN,URINE NEGATIVE mg/dL (<2.0)
--- NOTE | 2019-07-16 11:53 | ER Document Report ---
ED General - General Chief Complaint: Leg Pain Stated Complaint: RIB PAIN Time Seen by Provider: 07/16/19 09:54 Primary Care Provider: LEONARD BELL PA-C [ALLIED HEALTH PROFESSIONAL] - Follow up as needed Mode of Arrival: Medic TRAVEL OUTSIDE OF THE [place] IN LAST 30 DAYS: No - HPI Notes: Mr. Abraham is a 58-year-old male with a history of alcoholic cirrhosis and chronic pain syndrome who is had a previous surgical replacement of his right hip now presenting with pain in the right groin area right rib area and right wrist after a fall he sustained at home yesterday. Patient says late yesterday yesterday afternoon he tripped over a lamp cord in his bedroom and fell to the floor. He was able to get himself up and crawled into bed stating that he "thought he would be okay". This morning when he attempted to get out of bed he had severe pain in areas described as above. He says he is unable to stand without assistance. He denies he had injury or neck pain. Long-standing history of alcoholism. Patient says he has not consumed any alcohol in several weeks. He is taking prescribed opiate pain medicine under supervision of pain management clinic. He denies any use of illicit drugs. He says he smokes about 2 cigarettes/day. - Related Data Allergies/Adverse Reactions: No Known Allergies Allergy (Verified 06/28/16 19:35) Past Medical History - General Information source: Patient, Friend - Social History Smoking Status: Current Every Day Smoker Chew tobacco use (# tins/day): No Frequency of alcohol use: Occasional Drug Abuse: None Family History: Reviewed & Not Pertinent, COPD Patient has suicidal ideation: No Patient has homicidal ideation: No - Past Medical History Cardiac Medical History: Denies: Hx Coronary Artery Disease, Hx Heart Attack, Hx Hypertension Pulmonary Medical History: Reports: Hx COPD Denies: Hx Asthma, Hx Bronchitis, Hx Pneumonia Neurological Medical History: Denies: Hx Cerebrovascular Accident, Hx Seizures GI Medical History: Reports: Hx Cirrhosis - Considered end-stage. Denies: Hx Hepatitis, Hx Hiatal Hernia, Hx Ulcer Musculoskeletal Medical History: Denies Hx Arthritis Psychiatric Medical History: Denies: Hx Depression Infectious Medical History: Denies: Hx Hepatitis Past Surgical History: Reports: Hx Orthopedic Surgery - R femur ava. Denies: Hx Open Heart Surgery, Hx Pacemaker - Immunizations Hx Diphtheria, Pertussis, Tetanus Vaccination: Yes Hx Pneumococcal Vaccination: 08/19/15 Review of Systems - Review of Systems Notes: Constitutional: Negative for fever. HENT: Negative for sore throat. Eyes: Negative for visual changes. Cardiovascular: Negative for chest pain. Respiratory: Negative for shortness of breath. Gastrointestinal: Negative for abdominal pain, vomiting or diarrhea. Genitourinary: Negative for dysuria. Musculoskeletal: As per HPI. Negative for back pain. Skin: Negative for rash. Neurological: Negative for headaches, weakness or numbness. 10 point ROS negative except as marked above and in HPI. Physical Exam - Vital signs Vitals: Temp Pulse Resp BP Pulse Ox 98.1 F 77 16 150/96 H 99 07/16/19 09:42 07/16/19 09:42 07/16/19 09:42 07/16/19 09:42 07/16/19 09:42 - Notes Notes: GENERAL: Somewhat chronically ill-appearing male of approximately stated age who appears uncomfortable. SKIN: Good turgor no rashes. HEAD: Normocephalic atraumatic. EYES: PERRLA. Conjunctivae and sclerae clear. EARS: CANALS AND TMS CLEAR. NOSE: CLEAR. MOUTH: Moist mucosa. Good dentition. No stridor or edema. No drooling. NECK: Supple. No masses or thyromegaly. No adenopathy. Carotids 2+ without bruits. No JVD. BACK: Symmetrical without tenderness. CHEST: Tender over right lower lateral rib cage. Respirations unlabored. Breath sounds clear and symmetrical. HEART: Regular rhythm. No murmur gallop or rub. ABDOMEN: Soft nontender without masses, organomegaly or rebound. Bowel sounds normally active. No bruits. GENITALIA: Deferred. EXTREMITIES: No shortening or abnormal rotation of lower extremities. Patient complains of severe pain in the right groin area with any movement of right hip. No edema. No calf tenderness. Cap refill less than 1.5 seconds. Dorsalis pedis and posterior tibial pulses 3+ and symmetrical. NEUROLOGICAL: GCS 15. Alert and oriented x3. Fluent speech. Cranial nerves II through XII intact. Sensorimotor and cerebellar normal. Normal tone. Course - Re-evaluation Re-evalutation: 07/16/19 14:30 This gentleman was found to have a right seventh rib fracture and bilateral inferior ramus fractures of the pelvis. It does not be appear to be anything here requiring surgical intervention. We gave him a trial of ambulation with a walker but he was not able to manage the walker due to his pain. I spoke with the on-call hospitalist and he will be admitted for pain management and physical therapy. - Vital Signs Vital signs: Temp Pulse Resp BP Pulse Ox 98.1 F 77 16 150/96 H 99 07/16/19 09:42 07/16/19 09:42 07/16/19 09:42 07/16/19 09:42 07/16/19 09:42 - Laboratory Result Diagrams: 07/16/19 12:10 07/16/19 12:10 Laboratory results interpreted by me: 07/16/19 07/16/19 07/16/19 11:43 12:10 12:10 RBC 3.77 L Hgb 11.3 L Hct 33.2 L RDW 14.1 H Potassium 5.3 H Creatinine 1.57 H Est GFR ( Amer) 55 L Est GFR (MDRD) Non-Af 46 L Alkaline Phosphatase 152 H Urine Blood SMALL H - Diagnostic Test Radiology reviewed: Reports reviewed Discharge - Discharge Clinical Impression: Fall, Chronic pain syndrome Pelvic fracture Qualifiers: Encounter type: initial encounter Pelvic bone location: ischium Fracture type: closed Fracture morphology: unspecified fracture morphology Rib fracture Qualifiers: Encounter type: initial encounter Rib fracture type: single rib Fracture type: closed Laterality: right Qualified Code(s): S22.31XA - Fracture of one rib, right side, initial encounter for closed fracture Disposition: ADMITTED INPATIENT Admitting Provider: Will (Hospitalist) Unit Admitted: Medical Floor Referrals: LEONARD BELL PA-C [ALLIED HEALTH PROFESSIONAL] - Follow up as needed
--- NOTE | 2019-07-16 11:54 | RADIOLOGY REPORT (SQ) ---
EXAM DESCRIPTION: RIBS RIGHT W/PA CHEST COMPLETED DATE/TIME: 07/16/2019 11:18 am REASON FOR STUDY: fall pain COMPARISON: 05/27/2011 TECHNIQUE: Frontal view of the chest and additional views of the right ribs acquired. NUMBER OF VIEWS: Five view. LIMITATIONS: None. FINDINGS: FRONTAL CXR: 2 cm pulmonary nodule the right base not seen previously. No pneumothorax. RIBS: Minimally displaced fracture of the 7th anterolateral right rib. OTHER: No other significant finding. IMPRESSION: No pneumothorax. 7th right anterior rib fracture. New radiodensity having the appearance of a pulmonary nodule at the right base. COMMENT: Recommend chest CT. SITE OF TRAUMA/COMPLAINT MARKED/STAMP COMPLETED: No TECHNICAL DOCUMENTATION: JOB ID: [id number] [employer]- All Rights Reserved Reading location - IP/workstation name: [email or web address]
[2019-07-16 12:07] LABS: URINE AMPHETAMINES SCREEN NEGATIVE; URINE BARBITURATES SCREEN NEGATIVE; URINE BENZODIAZEPINES SCREEN NEGATIVE; URINE COCAINE SCREEN NEGATIVE; URINE MARIJUANA (THC) SCREEN NEGATIVE; URINE METHADONE SCREEN NEGATIVE; URINE PHENCYCLIDINE SCREEN NEGATIVE
[2019-07-16] MEDS: FENTANYL CITRATE INJ/PF 100 MCG/2 ML AMPUL IV PRN ×4 (12:16→23:46)
[2019-07-16 12:21] LABS: ABSOLUTE BASOPHILS # (AUTO) 0.1 10^3/uL (0.0-0.2); ABSOLUTE EOSINOPHILS # (AUTO) 0.4 10^3/uL (0.0-0.6); ABSOLUTE LYMPHOCYTES (AUTO) 1.3 10^3/uL (0.5-4.7); ABSOLUTE MONOCYTES (AUTO) 0.8 10^3/uL (0.1-1.4); ABSOLUTE NEUT (AUTO) 6.9 10^3/uL (1.7-8.2); BASOPHILS % (AUTO) 0.6 % (0-2); EOSINOPHILS % (AUTO) 3.9 % (0-6); HEMATOCRIT 33.2 % (37.9-51.0); HEMOGLOBIN 11.3 g/dL (13.5-17.0); LYMPHOCYTES % (AUTO) 13.4 % (13-45); MEAN CORPUSCULAR HEMOGLOBIN 29.9 pg (27.0-33.4); MEAN CORPUSCULAR HGB CONC 33.9 g/dL (32.0-36.0); MEAN CORPUSCULAR VOLUME 88 fl (80-97); MONOCYTES % (AUTO) 8.4 % (3-13); PLATELET COUNT 273 10^3/uL (150-450); RED BLOOD COUNT 3.77 10^6/uL (4.35-5.55); RED CELL DISTRIBUTION WIDTH 14.1 % (11.5-14.0); SEGMENTED NEUTROPHILS % (AUTO) 73.7 % (42-78); TOTAL CELLS COUNTED % (AUTO) 100 %; WHITE BLOOD COUNT 9.3 10^3/uL (4.0-10.5)
[2019-07-16 12:51] LABS: ALBUMIN 4.1 g/dL (3.5-5.0); ALKALINE PHOSPHATASE 152 U/L (38-126); ANION GAP 9 (5-19); ASPARTATE AMINO TRANSFERASE 26 U/L (17-59); BILIRUBIN,DIRECT 0.2 mg/dL (0.0-0.4); BILIRUBIN,TOTAL 0.6 mg/dL (0.2-1.3); BLOOD UREA NITROGEN 18 mg/dL (7-20); CALCIUM 8.9 mg/dL (8.4-10.2); CARBON DIOXIDE 24 mmol/L (22-30); CHLORIDE 106 mmol/L (98-107); GLUCOSE 93 mg/dL (75-110); POTASSIUM 5.3 mmol/L (3.6-5.0); TOTAL PROTEIN 7.8 g/dL (6.3-8.2)
[2019-07-16 12:55] LABS: ALCOHOL < 10 mg/dL (NONE DETECTED)
--- NOTE | 2019-07-16 13:45 | RADIOLOGY REPORT (SQ) ---
EXAM DESCRIPTION: CT PELVIS WITHOUT COMPLETED DATE/TIME: 07/16/2019 1:32 pm REASON FOR STUDY: Severe pain right hip/pelvis s/p fall no fx. XR COMPARISON: None. TECHNIQUE: CT scan of the pelvis performed without intravenous or oral contrast. Images reviewed wi th soft tissue and bone windows. Reconstructed coronal and sagittal MPR images reviewed. All images stored on PACS. All CT scanners at this facility use dose modulation, iterative reconstruction, and/or weight based d osing when appropriate to reduce radiation dose to as low as reasonably achievable (ALARA). [facility]: Dose Right [facility]: CareDose [facility]: Dose Right [facility]: Teradose 4D [facility]: Smart MentorDOTMe RADIATION DOSE: CT Rad equipment meets quality standard of care and radiation dose reduction techniq ues were employed. CTDIvol: 6.5 mGy. DLP: 266 mGy-cm. mGy. LIMITATIONS: None. FINDINGS: PELVIC BONES: Nondisplaced fracture pubic symphysis on the right. Nondisplaced fracture i nferior pubic ramus on the left. VISUALIZED SPINE: No acute findings. Treated hip fracture on the left. HIP(S): No acute fracture or dislocation. No worrisome bone lesions. PELVIC SOFT TISSUES: No significant findings. EXTRAPELVIC SOFT TISSUES: No significant findings. OTHER: Osteopenia. IMPRESSION: Nondisplaced fractures pubic symphysis on the right inferior pubic ramus on the left. TECHNICAL DOCUMENTATION: JOB ID: [id number] Quality ID # [id number]: Final reports with documentation of one or more dose reduction techniques (e.g., Au tomated exposure control, adjustment of the mA and/or kV according to patient size, use of iterative reconstruction technique) 2010 [employer]- All Rights Reserved Reading location - IP/workstation name: [email or web address]
--- NOTE | 2019-07-16 13:54 | RADIOLOGY REPORT (SQ) ---
EXAM DESCRIPTION: CT CHEST WITH COMPLETED DATE/TIME: 07/16/2019 1:39 pm REASON FOR STUDY: pulm nodule rib fx. COMPARISON: Chest radiograph TECHNIQUE: CT scan of the chest performed using helical scanning technique with dynamic intravenous contrast injection. Images reviewed with lung, soft tissue and bone windows. Reconstructed coronal and sagittal MPR and MIP images reviewed. All images stored on PACS. All CT scanners at this facility use dose modulation, iterative reconstruction, and/or weight based d osing when appropriate to reduce radiation dose to as low as reasonably achievable (ALARA). [facility]: Dose Right [facility]: CareDose [facility]: Dose Right [facility]: Teradose 4D [facility]: Anagran CONTRAST TYPE AND DOSE: contrast/concentration: Isovue 350.00 mg/ml; Total Contrast Delivered: 80.0 ml; Total Saline Delivered: 40.0 ml RENAL FUNCTION: Creatinine 1.57 RADIATION DOSE: CT Rad equipment meets quality standard of care and radiation dose reduction techniq ues were employed. CTDIvol: 8.7 mGy. DLP: 375 mGy-cm. . LIMITATIONS: None. FINDINGS: LUNGS AND PLEURA: Pulmonary emphysema with extensive bullous changes. 5.7 mm pulmonary no dule right middle lobe image 27 series 4. 3.3 mm pulmonary nodule right lower lobe image 27 series 4 . HILAR AND MEDIASTINAL STRUCTURES: No identified masses or abnormal nodes. HEART AND VASCULAR STRUCTURES: No aneurysm or dissection. No central pulmonary emboli. No pericardi al effusion. HARDWARE: None in the chest. UPPER ABDOMEN: No significant findings. Limited exam. THYROID AND OTHER SOFT TISSUES: No masses. No adenopathy. BONES: There are multiple thoracic compression fractures age indeterminate. Acute and rib fractures. OTHER: No other significant finding. IMPRESSION: 2 adjacent pulmonary nodules. Largest is 5.7 mm. Multiple thoracic compression fractures age indeterminate. Marked emphysema. COMMENT: FLEISCHNER CRITERIA FOR FOLLOW-UP OF PULMONARY NODULES Incidentally detected new nodules in persons 35 or older. HIGH RISK: History of smoking or other known risk factors. <6mm single solid nodule: LOW RISK: no routine followup. HIGH RISK: optional CT 12 mo. TECHNICAL DOCUMENTATION: JOB ID: [id number] Quality ID # [id number]: Final reports with documentation of one or more dose reduction techniques (e.g., Au tomated exposure control, adjustment of the mA and/or kV according to patient size, use of iterative reconstruction technique) 2010 [employer]- All Rights Reserved Reading location - IP/workstation name: [email or web address]
[2019-07-16] MEDS ORDERED: NORMAL SALINE 1000 ML 1,000 ML IV PRN (15:13)
[2019-07-16] MEDS ORDERED: ONDANSETRON 4 MG TAB.RAPDIS PO PRN (15:13)
[2019-07-16] MEDS ORDERED: TEMAZEPAM 7.5 MG CAPSULE PO PRN (15:13)
[2019-07-16] MEDS ORDERED: ACETAMINOPHEN 325 MG TABLET PO PRN (15:13)
[2019-07-16] MEDS ORDERED: PROMETHAZINE HCL INJ 25 MG/1 ML VIAL IV PRN (15:13)
--- NOTE | 2019-07-16 17:03 | PDOC H&P ---
History of Present Illness Admission Date/PCP: 07/16/19 14:44 EYAL FUNG MD History of Present Illness: ANNA ALFONSO is a 58 year old male past medical history of COPD, alcoholic cirrhosis, osteoporosis, vertebral compression fractures, chronic pain with opiate dependency, presented to ED complaining of right wrist right hip and right rib pain. Pain is started 1 day prior to arrival to ED after patient tripped over a cord and fell on his side, PT stating that he went to bed hoping that his pain improves however pain has been persistent and not controlled with his home morphine and Percocet. Patient has history of multiple vertebral compression fractures due to osteoporosis, and is on opiate chronically for pain management, patient is stating that since fall he has not been able to ambulate much, his right hip hurts when he tries to move, and it hurts when he tries to breathe or move. Patient says not sustain any head trauma, did not lose any consciousness, was not lightheaded or did not have any palpitations before the fall. Patient denies any fever, lightheadedness, chest pain, shortness of breath, nausea, abdominal pain, diarrhea, constipation or any urinary symptoms. Past Medical History Cardiac Medical History: Denies: Coronary Artery Disease, Myocardial Infarction, Hypertension Pulmonary Medical History: Reports: Chronic Obstructive Pulmonary Disease (COPD) Denies: Asthma, Bronchitis, Pneumonia Neurological Medical History: Denies: Seizures GI Medical History: Reports: Cirrhosis - Considered end-stage Denies: Hepatitis, Hiatal Hernia Musculoskeltal Medical History: Denies: Arthritis Psychiatric Medical History: Denies: Depression Hematology: Denies: Anemia, Sickle Cell Disease Past Surgical History Past Surgical History: Reports: Orthopedic Surgery - R femur ava Denies: Pacemaker Social History Smoking Status: Current Every Day Smoker Electronic Cigarette use?: Yes Frequency of Alcohol Use: None Hx Recreational Drug Use: No Drugs: None Hx Prescription Drug Abuse: No Family History Family History: Reviewed & Not Pertinent, COPD Parental Family History Reviewed: Yes Children Family History Reviewed: Yes Sibling(s) Family History Reviewed.: Yes Medication/Allergy Home Medications: Lactulose [Cephulac Syrup 20 gm/30 ml Udcup] 30 gm PO BID udc 06/30/16 Multivitamin [Multivitamins] 1 each PO 07/23/18 Morphine Sulfate [Morphine Ir 15 Mg Tablet] 15 mg PO ASDIR PRN 07/30/18 Oxycodone HCl/Acetaminophen [Percocet 10-325 Mg Tablet] 1 each PO ASDIR PRN 07/30/18 Allergies/Adverse Reactions: No Known Allergies Allergy (Verified 06/28/16 19:35) Review of Systems Review of Systems: as per hpi Physical Exam Vital Signs: Temp Pulse Resp BP Pulse Ox 98.3 F 69 17 127/76 H 94 07/16/19 15:54 07/16/19 15:54 07/16/19 15:54 07/16/19 15:54 07/16/19 15:54 Intake & Output 07/15/19 07/16/19 07/17/19 06:59 06:59 06:59 Weight 70.307 kg General appearance: PRESENT: no acute distress, well-developed, well-nourished Respiratory exam: PRESENT: chest wall tenderness - Rt mid axillary, clear to auscultation nick. ABSENT: rales, rhonchi, wheezes Cardiovascular exam: PRESENT: RRR. ABSENT: diastolic murmur, rubs, systolic murmur Extremities exam: PRESENT: full ROM - Right hip range of motion limited by pain.. ABSENT: calf tenderness, clubbing, pedal edema Neurological exam: PRESENT: alert, awake, oriented to person, oriented to place, oriented to time, oriented to situation, CN II-XII grossly intact. ABSENT: motor sensory deficit Results Laboratory Results: 07/16/19 12:10 07/16/19 12:10 07/16/19 07/16/19 07/16/19 11:43 12:10 12:10 WBC 9.3 RBC 3.77 L Hgb 11.3 L Hct 33.2 L MCV 88 MCH 29.9 MCHC 33.9 RDW 14.1 H Plt Count 273 Seg Neutrophils % 73.7 Sodium 138.6 Potassium 5.3 H Chloride 106 Carbon Dioxide 24 Anion Gap 9 BUN 18 Creatinine 1.57 H Est GFR ( Amer) 55 L Glucose 93 Calcium 8.9 Total Bilirubin 0.6 AST 26 Alkaline Phosphatase 152 H Total Protein 7.8 Albumin 4.1 Urine Color STRAW Urine Appearance CLEAR Urine pH 6.0 Ur Specific [place] 1.005 Urine Protein NEGATIVE Urine Glucose (UA) NEGATIVE Urine Ketones NEGATIVE Urine Blood SMALL H Urine RBC (Auto) 1 Impressions: Hip/Pelvis X-Ray 07/16/19 09:58 IMPRESSION: No acute fracture. Ribs w/Chest X-Ray 07/16/19 09:58 IMPRESSION: No pneumothorax. 7th right anterior rib fracture. New radiodensity having the appearance of a pulmonary nodule at the right base. Wrist X-Ray 07/16/19 09:58 IMPRESSION: NEGATIVE STUDY OF THE RIGHT WRIST. NO RADIOGRAPHIC EVIDENCE OF ACUTE INJURY. Pelvis CT 07/16/19 12:18 IMPRESSION: Nondisplaced fractures pubic symphysis on the right inferior pubic ramus on the left. Chest CT 07/16/19 12:20 IMPRESSION: 2 adjacent pulmonary nodules. Largest is 5.7 mm. Multiple thoracic compression fractures age indeterminate. Marked emphysema. Assessment and Plan - Diagnosis (1) Pelvic fracture Qualifiers: Encounter type: initial encounter Pelvic bone location: ischium Fracture type: closed Fracture morphology: unspecified fracture morphology Is this a current diagnosis for this admission?: Yes Plan: Traumatic. Due to mechanical fall. Pelvis CT: Nondisplaced fractures, pubic symphysis on the right, inferior pubic rami on the left. Denies any focal neurological symptoms. Bilateral lower extremity neurovascularly intact. Range of motion limited by pain. PT/OT supportive measures. Opioid and non-opioid analgesics. Consult orthopedic surgery for further recommendation. (2) Chronic pain syndrome Is this a current diagnosis for this admission?: Yes Plan: History of multiple vertebral fractures due to osteoporosis. Home meds are: Morphine IR 15 mg as needed. Percocet 103 25 p.o. as needed. Restart home meds. Fall precaution. Monitor for respiratory depression. (3) Rib fracture Qualifiers: Encounter type: initial encounter Rib fracture type: single rib Fracture type: closed Laterality: right Qualified Code(s): S22.31XA - Fracture of one rib, right side, initial encounter for closed fracture Is this a current diagnosis for this admission?: Yes Plan: Traumatic. Due to mechanical fall. No pneumothorax. Topical lidocaine. Encourage ambulation and breathing. Incentive spirometer. Limit opioids provide respiratory depression and development of atelectasis and pneumonia. Monitor vitals. (4) COPD (chronic obstructive pulmonary disease) Qualifiers: COPD type: emphysema Is this a current diagnosis for this admission?: Yes Plan: Does not seem to be exacerbated. Not on home O2. History of heavy smoking. Supplemental oxygen, PRN duo nebs, PRN BiPAP, restart home meds. (5) Tobacco abuse Is this a current diagnosis for this admission?: Yes Plan: Advised on cutting. Lidocaine patch will be provided. (6) Alcoholic cirrhosis Qualifiers: Ascites presence: without ascites Qualified Code(s): K70.30 - Alcoholic c irrhosis of liver without ascites Is this a current diagnosis for this admission?: Yes Plan: History of alcoholic cirrhosis. History of heavy alcohol abuse. Drinks occasionally twice per month. Platelets WNL. Albumin WNL. T bili and liver chemistries WNL. Alert oriented x3. No sign of bleeding. Restart home meds. Outpatient PCP and gastroenterology follow-up. (7) CKD (chronic kidney disease) stage 3, GFR 30-59 ml/min Is this a current diagnosis for this admission?: Yes Plan: Nonoliguric. Denies any uremic symptoms. Electrolytes WNL except for hyperkalemia. Creatinine at baseline. Monitor electrolytes and volume status, avoid nephrotoxic meds. Outpatient PCP and nephrology follow-up. (8) Hyperkalemia Is this a current diagnosis for this admission?: Yes Plan: Likely due to rhabdomyolysis caused by recent trauma. Hyperkalemia protocol. Will obtain CK. (9) Pulmonary nodules Is this a current diagnosis for this admission?: Yes Plan: CT chest: Positive for 2 adjacent pulmonary nodules largest 5.7 right lower lo be. Given history of chronic heavy smoking suspicion for malignancy is high. Outpatient pulmonary follow-up.
[2019-07-16] MEDS: PANTOPRAZOLE SODIUM 40 MG TABLET.DR PO SCH (17:42)
[2019-07-16] MEDS: DOCUSATE SODIUM 100 MG CAPSULE PO SCH (17:42)
[2019-07-16] MEDS: LIDOCAINE 5% (700 MG) TRANSDERMAL ADH..PATCH TP SCH (17:42)
[2019-07-16] MEDS: IPRATROPIUM/ALBUTEROL 0.5-2.5 MG/3 ML AMPUL NEB SCH (20:32)
[2019-07-16] MEDS: HEPARIN SOD (PORCINE) 5,000 UNIT/ML 1 ML VIAL SUBCUT SCH (22:46)
[2019-07-17] MEDS: FENTANYL CITRATE INJ/PF 100 MCG/2 ML AMPUL IV PRN ×2 (02:13→06:33)
[2019-07-17] MEDS: PANTOPRAZOLE SODIUM 40 MG TABLET.DR PO SCH ×2 (06:32→16:22)
[2019-07-17] MEDS: HEPARIN SOD (PORCINE) 5,000 UNIT/ML 1 ML VIAL SUBCUT SCH ×3 (06:32→21:18)
[2019-07-17 06:34] LABS: ABSOLUTE BASOPHILS # (AUTO) 0.1 10^3/uL (0.0-0.2); ABSOLUTE EOSINOPHILS # (AUTO) 0.5 10^3/uL (0.0-0.6); ABSOLUTE LYMPHOCYTES (AUTO) 1.5 10^3/uL (0.5-4.7); ABSOLUTE MONOCYTES (AUTO) 0.9 10^3/uL (0.1-1.4); ABSOLUTE NEUT (AUTO) 7.2 10^3/uL (1.7-8.2); BASOPHILS % (AUTO) 0.7 % (0-2); EOSINOPHILS % (AUTO) 4.9 % (0-6); HEMATOCRIT 32.3 % (37.9-51.0); HEMOGLOBIN 10.9 g/dL (13.5-17.0); LYMPHOCYTES % (AUTO) 14.4 % (13-45); MEAN CORPUSCULAR HEMOGLOBIN 29.8 pg (27.0-33.4); MEAN CORPUSCULAR HGB CONC 33.8 g/dL (32.0-36.0); MEAN CORPUSCULAR VOLUME 88 fl (80-97); PLATELET COUNT 276 10^3/uL (150-450); RED BLOOD COUNT 3.65 10^6/uL (4.35-5.55); RED CELL DISTRIBUTION WIDTH 14.3 % (11.5-14.0); TOTAL CELLS COUNTED % (AUTO) 100 %; WHITE BLOOD COUNT 10.2 10^3/uL (4.0-10.5)
[2019-07-17 06:58] LABS: ALBUMIN 3.9 g/dL (3.5-5.0); ALKALINE PHOSPHATASE 138 U/L (38-126); ANION GAP 11 (5-19); ASPARTATE AMINO TRANSFERASE 25 U/L (17-59); BILIRUBIN,DIRECT 0.2 mg/dL (0.0-0.4); BILIRUBIN,TOTAL 0.7 mg/dL (0.2-1.3); BLOOD UREA NITROGEN 21 mg/dL (7-20); CARBON DIOXIDE 22 mmol/L (22-30); CHLORIDE 106 mmol/L (98-107); GLUCOSE 90 mg/dL (75-110); PHOSPHORUS 3.9 mg/dL (2.5-4.5); POTASSIUM 5.9 mmol/L (3.6-5.0); TOTAL PROTEIN 7.6 g/dL (6.3-8.2)
[2019-07-17] MEDS ORDERED: OXYCODONE-ACETAMINOPHEN 5-325 MG TABLET PO PRN (07:28)
[2019-07-17] MEDS: HYDROMORPHONE HCL INJ/PF 2 MG/ML AMPULE IV PRN ×4 (09:07→22:21)
[2019-07-17] MEDS: IPRATROPIUM/ALBUTEROL 0.5-2.5 MG/3 ML AMPUL NEB SCH ×3 (09:19→20:17)
[2019-07-17] MEDS: SODIUM POLYSTYRENE SULFONATE 15 GM/60 ML PO SCH ×3 (09:45→21:18)
[2019-07-17] MEDS: LACTULOSE SYRUP 20 GM/30 ML UDCUP PO SCH ×2 (09:47→17:17)
[2019-07-17] MEDS: DOCUSATE SODIUM 100 MG CAPSULE PO SCH ×2 (09:47→17:17)
[2019-07-17] MEDS: LIDOCAINE 5% (700 MG) TRANSDERMAL ADH..PATCH TP SCH (09:48)
--- NOTE | 2019-07-17 10:20 | PDOC PROGRESS REPORT ---
Subjective Progress Note for:: 07/17/19 Subjective:: ANNA ALFONSO is a 58 year old male past medical history of COPD, alcoholic cirrhosis, osteoporosis, vertebral compression fractures, chronic pain with opiate dependency, presented to ED complaining of right wrist right hip and right rib pain. Pain is started 1 day prior to arrival to ED after patient tripped over a cord and fell on his side, PT stating that he went to bed hoping that his pain improves however pain has been persistent and not controlled with his home morphine and Percocet. Patient has history of multiple vertebral compression fractures due to osteoporosis, and is on opiate chronically for pain management, patient is stating that since fall he has not been able to ambulate much, his right hip hurts when he tries to move, and it hurts when he tries to breathe or move. Patient says not sustain any head trauma, did not lose any consciousness, was not lightheaded or did not have any palpitations before the fall. Patient denies any fever, lightheadedness, chest pain, shortness of breath, nausea, abdominal pain, diarrhea, constipation or any urinary symptoms. 07/17/2019. No acute events overnight. Patient still complaining of right hip pain and right chest pain. Denies any fever, chills, nausea, vomiting, diarrhea or constipation. P.o. tolerant having normal bowel and bladder movements. Reason For Visit: RIB FRACTURE, FALL Physical Exam Vital Signs: Temp Pulse Resp BP Pulse Ox 97.6 F 81 16 140/67 H 94 07/17/19 07:19 07/17/19 09:19 07/17/19 09:19 07/17/19 07:19 07/17/19 09:19 Intake & Output 07/16/19 07/17/19 07/18/19 06:59 06:59 06:59 Output Total 525 Balance -525 Weight 71.7 kg General appearance: PRESENT: no acute distress, well-developed, well-nourished Respiratory exam: PRESENT: clear to auscultation nick. ABSENT: rales, rhonchi, wheezes Cardiovascular exam: PRESENT: RRR. ABSENT: diastolic murmur, rubs, systolic murmur GI/Abdominal exam: PRESENT: normal bowel sounds, soft. ABSENT: distended, guarding, mass, organolmegaly, rebound, tenderness Musculoskeletal exam: PRESENT: tenderness - Right hip range of motion limited due to pain. Right lower extremity neurovascularly intact. Neurological exam: PRESENT: alert, awake, oriented to person, oriented to place, oriented to time, oriented to situation, CN II-XII grossly intact. ABSENT: motor sensory deficit Results Laboratory Results: 07/17/19 05:29 07/17/19 05:29 07/16/19 07/16/19 07/16/19 11:43 12:10 12:10 WBC 9.3 RBC 3.77 L Hgb 11.3 L Hct 33.2 L MCV 88 MCH 29.9 MCHC 33.9 RDW 14.1 H Plt Count 273 Seg Neutrophils % 73.7 Sodium 138.6 Potassium 5.3 H Chloride 106 Carbon Dioxide 24 Anion Gap 9 BUN 18 Creatinine 1.57 H Est GFR ( Amer) 55 L Glucose 93 Calcium 8.9 Phosphorus Magnesium Total Bilirubin 0.6 AST 26 Alkaline Phosphatase 152 H Total Protein 7.8 Albumin 4.1 Urine Color STRAW Urine Appearance CLEAR Urine pH 6.0 Ur Specific [place] 1.005 Urine Protein NEGATIVE Urine Glucose (UA) NEGATIVE Urine Ketones NEGATIVE Urine Blood SMALL H Urine RBC (Auto) 1 07/17/19 07/17/19 05:29 05:29 WBC 10.2 RBC 3.65 L Hgb 10.9 L Hct 32.3 L MCV 88 MCH 29.8 MCHC 33.8 RDW 14.3 H Plt Count 276 Seg Neutrophils % 71.0 Sodium 138.7 Potassium 5.9 H Chloride 106 Carbon Dioxide 22 Anion Gap 11 BUN 21 H Creatinine 1.80 H Est GFR ( Amer) 47 L Glucose 90 Calcium 9.0 Phosphorus 3.9 Magnesium 2.1 Total Bilirubin 0.7 AST 25 Alkaline Phosphatase 138 H Total Protein 7.6 Albumin 3.9 Urine Color Urine Appearance Urine pH Ur Specific [place] Urine Protein Urine Glucose (UA) Urine Ketones Urine Blood Urine RBC (Auto) 07/16/19 12:10 Creatine Kinase 67 Impressions: Hip/Pelvis X-Ray 07/16/19 09:58 IMPRESSION: No acute fracture. Ribs w/Chest X-Ray 07/16/19 09:58 IMPRESSION: No pneumothorax. 7th right anterior rib fracture. New radiodensity having the appearance of a pulmonary nodule at the right base. Wrist X-Ray 07/16/19 09:58 IMPRESSION: NEGATIVE STUDY OF THE RIGHT WRIST. NO RADIOGRAPHIC EVIDENCE OF ACUTE INJURY. Pelvis CT 07/16/19 12:18 IMPRESSION: Nondisplaced fractures pubic symphysis on the right inferior pubic ramus on the left. Chest CT 07/16/19 12:20 IMPRESSION: 2 adjacent pulmonary nodules. Largest is 5.7 mm. Multiple thoracic compression fractures age indeterminate. Marked emphysema. Assessment and Plan - Diagnosis (1) Pelvic fracture Qualifiers: Encounter type: initial encounter Pelvic bone location: ischium Fracture type: closed Fracture morphology: unspecified fracture morphology Is this a current diagnosis for this admission?: Yes Plan: Traumatic. Due to mechanical fall. Pelvis CT: Nondisplaced fractures, pubic symphysis on the right, inferior pubic rami on the left. Denies any focal neurological symptoms. Bilateral lower extremity neurovascularly intact. Range of motion limited by pain. PT/OT supportive measures. Opioid and non-opioid analgesics. Pending orthopedic consult. Orthopedic consult not available today due to the . (2) Chronic pain syndrome Is this a current diagnosis for this admission?: Yes Plan: History of multiple vertebral fractures due to osteoporosis. Sees Dr. Armenta at pain clinic as outpatient. Home meds are: MS Contin 15 mg p.o. daily. Percocet 103 2 5 p.o. 5 times daily. Restart home meds. Fall precaution. Monitor for respiratory depression. (3) Rib fracture Qualifiers: Encounter type: initial encounter Rib fracture type: single rib Fracture type: closed Laterality: right Qualified Code(s): S22.31XA - Fracture of one rib, right side, initial encounter for closed fracture Is this a current diagnosis for this admission?: Yes Plan: Traumatic. Due to mechanical fall. No pneumothorax. Topical lidocaine. Encourage ambulation and breathing. Incentive spirometer. Limit opioids provide respiratory depression and development of atelectasis and pneumonia. Monitor vitals. (4) COPD (chronic obstructive pulmonary disease) Qualifiers: COPD type: emphysema Is this a current diagnosis for this admission?: Yes Plan: Does not seem to be exacerbated. Not on home O2. History of heavy smoking. Supplemental oxygen, PRN duo nebs, PRN BiPAP, restart home meds. (5) Tobacco abuse Is this a current diagnosis for this admission?: Yes Plan: Advised on cutting. Lidocaine patch will be provided. (6) Alcoholic cirrhosis Qualifiers: Ascites presence: without ascites Qualified Code(s): K70.30 - Alcoholic cirrhosis of liver without ascites Is this a current diagnosis for this admission?: Yes Plan: History of alcoholic cirrhosis. History of heavy alcohol abuse. Drinks occasionally twice per month. Platelets WNL. Albumin WNL. T bili and liver chemistries WNL. Alert oriented x3. No sign of bleeding. Restart home meds. Outpatient PCP and gastroenterology follow-up. (7) CKD (chronic kidney disease) stage 3, GFR 30-59 ml/min Is this a current diagnosis for this admission?: Yes Plan: Nonoliguric. Denies any uremic symptoms. Electrolytes WNL except for hyperkalemia. Creatinine trending up. Monitor electrolytes and volume status, avoid nephrotoxic meds. Outpatient PCP and nephrology follow-up. (8) Hyperkalemia Is this a current diagnosis for this admission?: Yes Plan: No acute EKG changes. Hyperkalemia protocol. (9) Pulmonary nodules Is this a current diagnosis for this admission?: Yes Plan: Updated patient. As per patient he has had nodules in his lungs for the last 35 years, he was told this time he was about 5 mm. Stating that he has had extensi ve work-up including TB as outpatient. CT chest: Positive for 2 adjacent pulmonary nodules largest 5.7 mm right lower lobe. Outpatient pulmonary follow-up.
[2019-07-17] MEDS ORDERED: CALCIUM GLUCONATE 1000 MG/10 ML INJ IV ONE (10:21)
[2019-07-17] MEDS: MORPHINE SULFATE SR 15 MG TABLET PO SCH (11:00)
--- NOTE | 2019-07-17 12:12 | EKG REPORT ---
SEVERITY:- BORDERLINE ECG - SINUS RHYTHM VENTRICULAR PREMATURE COMPLEX TALL R WAVE IN V2, CONSIDER RVH OR PMI : Confirmed by: Heather Phillips 17-Jul-2019 12:11:06
[2019-07-17] MEDS: OXYCODONE-ACETAMINOPHEN 5-325 MG TABLET PO SCH ×3 (12:42→19:44)
[2019-07-17] MEDS: OXYCODONE HCL IR 5 MG TABLET PO SCH ×3 (12:43→19:43)
[2019-07-17] MEDS ORDERED: (PENDING PHARMACY ID) (Oxycodone Hcl/Acetaminophen [Percocet 10-325 Mg Tablet] 1 TAB) PO SCH (13:00)
[2019-07-18] MEDS: HYDROMORPHONE HCL INJ/PF 2 MG/ML AMPULE IV PRN ×5 (02:40→23:55)
[2019-07-18] MEDS: HEPARIN SOD (PORCINE) 5,000 UNIT/ML 1 ML VIAL SUBCUT SCH ×3 (05:08→21:06)
[2019-07-18] MEDS: PANTOPRAZOLE SODIUM 40 MG TABLET.DR PO SCH ×2 (05:10→17:17)
[2019-07-18] MEDS: OXYCODONE-ACETAMINOPHEN 5-325 MG TABLET PO SCH ×5 (06:02→21:05)
[2019-07-18] MEDS: OXYCODONE HCL IR 5 MG TABLET PO SCH ×5 (06:02→21:05)
[2019-07-18] MEDS: IPRATROPIUM/ALBUTEROL 0.5-2.5 MG/3 ML AMPUL NEB SCH ×2 (08:34→14:25)
[2019-07-18] MEDS ORDERED: CALCIUM GLUCONATE 1000 MG/10 ML INJ IV ONE (08:45)
[2019-07-18] MEDS: DOCUSATE SODIUM 100 MG CAPSULE PO SCH ×2 (09:55→17:14)
[2019-07-18] MEDS: MULTIVITAMIN TABLET PO SCH (09:55)
[2019-07-18] MEDS: LACTULOSE SYRUP 20 GM/30 ML UDCUP PO SCH ×2 (09:55→17:18)
--- NOTE | 2019-07-18 10:32 | PDOC PROGRESS REPORT ---
Subjective Progress Note for:: 07/18/19 Subjective:: ANNA ALFONSO is a 58 year old male past medical history of COPD, alcoholic cirrhosis, osteoporosis, vertebral compression fractures, chronic pain with opiate dependency, presented to ED complaining of right wrist right hip and right rib pain. Pain is started 1 day prior to arrival to ED after patient tripped over a cord and fell on his side, PT stating that he went to bed hoping that his pain improves however pain has been persistent and not controlled with his home morphine and Percocet. Patient has history of multiple vertebral compression fractures due to osteoporosis, and is on opiate chronically for pain management, patient is stating that since fall he has not been able to ambulate much, his right hip hurts when he tries to move, and it hurts when he tries to breathe or move. Patient says not sustain any head trauma, did not lose any consciousness, was not lightheaded or did not have any palpitations before the fall. Patient denies any fever, lightheadedness, chest pain, shortness of breath, nausea, abdominal pain, diarrhea, constipation or any urinary symptoms. 07/17/2019. No acute events overnight. Patient still complaining of right hip pain and right chest pain. Denies any fever, chills, nausea, vomiting, diarrhea or constipation. P.o. tolerant having normal bowel and bladder movements. 07/18/2019. No acute events overnight. Right chest and right pelvic pain or improving. Has not had a bowel movement since yesterday. Patient is still having elevated potassium. Refused Kayexalate yesterday. Denies any fever, chills, nausea, vomiting, diarrhea or any urinary symptoms. Patient is pending evaluation by orthopedic surgery. Reason For Visit: RIB FX S/P FALL Physical Exam Vital Signs: Temp Pulse Resp BP Pulse Ox 98.4 F 92 17 134/71 H 97 07/18/19 08:17 07/18/19 08:17 07/18/19 08:17 07/18/19 08:17 07/18/19 08:17 Intake & Output 07/17/19 07/18/19 07/19/19 06:59 06:59 06:59 Intake Total 1206 Output Total 525 1200 Balance -525 6 Weight 71.7 kg 71.4 kg General appearance: PRESENT: no acute distress, well-developed, well-nourished Respiratory exam: PRESENT: clear to auscultation nick. ABSENT: rales, rhonchi, wheezes Cardiovascular exam: PRESENT: RRR. ABSENT: diastolic murmur, rubs, systolic murmur GI/Abdominal exam: PRESENT: normal bowel sounds, soft. ABSENT: distended, guarding, mass, organolmegaly, rebound, tenderness Extremities exam: PRESENT: full ROM - Right lower extremity range of motion limited by pain. Neurovascularly intact. TTP over pubic symphysis.. ABSENT: calf tenderness, clubbing, pedal edema Neurological exam: PRESENT: alert, awake, oriented to person, oriented to place, oriented to time, oriented to situation, CN II-XII grossly intact. ABSENT: motor sensory deficit Results Laboratory Results: 07/17/19 05:29 07/17/19 05:29 07/16/19 12:10 Creatine Kinase 67 Impressions: Hip/Pelvis X-Ray 07/16/19 09:58 IMPRESSION: No acute fracture. Ribs w/Chest X-Ray 07/16/19 09:58 IMPRESSION: No pneumothorax. 7th right anterior rib fracture. New radiodensity having the appearance of a pulmonary nodule at the right base. Wrist X-Ray 07/16/19 09:58 IMPRESSION: NEGATIVE STUDY OF THE RIGHT WRIST. NO RADIOGRAPHIC EVIDENCE OF ACUTE INJURY. Pelvis CT 07/16/19 12:18 IMPRESSION: Nondisplaced fractures pubic symphysis on the right inferior pubic ramus on the left. Chest CT 07/16/19 12:20 IMPRESSION: 2 adjacent pulmonary nodules. Largest is 5.7 mm. Multiple thoracic compression fractures age indeterminate. Marked emphysema. Assessment and Plan - Diagnosis (1) Pelvic fracture Qualifiers: Encounter type: initial encounter Pelvic bone location: ischium Fracture type: closed Fracture morphology: unspecified fracture morphology Is this a current diagnosis for this admission?: Yes Plan: Traumatic. Due to mechanical fall. Pelvis CT: Nondisplaced fractures, pubic symphysis on the right, inferior pubic rami on the left. Denies any focal neurological symptoms. Bilateral lower extremity neurovascularly intact. Range of motion limited by pain. PT/OT supportive measures. Opioid and non-opioid analgesics. Orthopedic surgeon consulted. Pending recommendations. (2) Chronic pain syndrome Is this a current diagnosis for this admission?: Yes Plan: History of multiple vertebral fractures due to osteoporosis. Sees Dr. Armenta at pain clinic as outpatient. Home meds are: MS Contin 15 mg p.o. daily. Percocet 103 2 5 p.o. 5 times daily. Restart home meds. Fall precaution. Monitor for respiratory depression. (3) Rib fracture Qualifiers: Encounter type: initial encounter Rib fracture type: single rib Fracture type: closed Laterality: right Qualified Code(s): S22.31XA - Fracture of one rib, right side, initial encounter for closed fracture Is this a current diagnosis for this admission?: Yes Plan: Improving. Traumatic. Due to mechanical fall. No pneumothorax. Topical lidocaine. Encourage ambulation and breathing. Incentive spirometer. Limit opioids provide respiratory depression and development of atelectasis and pneumonia. Monitor vitals. (4) COPD (chronic obstructive pulmonary disease) Qualifiers: COPD type: emphysema Is this a current diagnosis for this admission?: Yes Plan: Does not seem to be exacerbated. Not on home O2. History of heavy smoking. Supplemental oxygen, PRN duo nebs, PRN BiPAP, restart home meds. (5) Tobacco abuse Is this a current diagnosis for this admission?: Yes Plan: Advised on cutting. Lidocaine patch will be provided. (6) Alcoholic cirrhosis Qualifiers: Ascites presence: without ascites Qualified Code(s): K70.30 - Alcoholic cirrhosis of liver without ascites Is this a current diagnosis for this admission?: Yes Plan: History of alcoholic cirrhosis. History of heavy alcohol abuse. Drinks occasionally twice per month. Platelets WNL. Albumin WNL. T bili and liver chemistries WNL. Alert oriented x3. No sign of bleeding. Restart home meds. Outpatient PCP and gastroenterology follow-up. (7) CKD (chronic kidney disease) stage 3, GFR 30-59 ml/min Is this a current diagnosis for this admission?: Yes Plan: Nonoliguric. Denies any uremic symptoms. Electrolytes WNL except for hyperkalemia. Creatinine trending up. Monitor electrolytes and volume status, avoid nephrotoxic meds. Outpatient PCP and nephrology follow-up. (8) Hyperkalemia Is this a current diagnosis for this admission?: Yes Plan: No acute EKG changes. Hyperkalemia protocol. Patient refused to receive Kayexalate yesterday. Encouraged to take Kayexalate. (9) Pulmonary nodules Is this a current diagnosis for this admission?: Yes Plan: Updated patient. As per patient he has had nodules in his lungs for the last 35 years, he was told this time he was about 5 mm. Stating that he has had extensive work-up including TB as outpatient. CT chest: Positive for 2 adjacent pulmonary nodules largest 5.7 mm right lower lobe. Outpatient pulmonary follow-up.
[2019-07-18] MEDS: LIDOCAINE 5% (700 MG) TRANSDERMAL ADH..PATCH TP SCH (10:53)
[2019-07-18] MEDS: MORPHINE SULFATE SR 15 MG TABLET PO SCH (11:11)
[2019-07-18] MEDS ORDERED: IPRATROPIUM/ALBUTEROL 0.5-2.5 MG/3 ML AMPUL NEB SCH (17:15)
--- NOTE | 2019-07-18 22:03 | PDOC CONSULTATION ---
Consultation Consult Date: 07/18/19 Provider Consulted: SARAH QUINTERO JR History of Present Illness Admission Date/PCP: 07/17/19 11:23 EYAL FUNG MD Patient complains of: right groin pain. History of Present Illness: ANNA ALFONSO is a 58 year old male with multiple comorbidities that fell at home and landed on his right side resulting in right hand and hip/groin pain. He explains that he tripped over a cord yesterday and had continued and worsening pain. He is on opioids for chronic pain management, but that they have not helped or allowed him to walk through his pain. Pain is mostly on the right groin, 8/10, worse with movement, improved with pain meds, achy in nature. He also has right wrist pain and bruising, aching and tender with use. He also complains of pain with inspiration on the right that coincides with right rib fractures. Past Medical History Cardiac Medical History: Denies: Coronary Artery Disease, Myocardial Infarction, Hypertension Pulmonary Medical History: Reports: Chronic Obstructive Pulmonary Disease (COPD) Denies: Asthma, Bronchitis, Pneumonia Neurological Medical History: Denies: Seizures GI Medical History: Reports: Cirrhosis - Considered end-stage Denies: Hepatitis, Hiatal Hernia Musculoskeltal Medical History: Denies: Arthritis Psychiatric Medical History: Denies: Depression Hematology: Denies: Anemia, Sickle Cell Disease Past Surgical History Past Surgical History: Reports: Orthopedic Surgery - R femur ava Denies: Pacemaker Social History Smoking Status: Current Every Day Smoker Electronic Cigarette use?: Yes Frequency of Alcohol Use: None Hx Recreational Drug Use: No Drugs: None Hx Prescription Drug Abuse: No Family History Family History: Reviewed & Not Pertinent, COPD Parental Family History Reviewed: No Children Family History Reviewed: NA Sibling(s) Family History Reviewed.: NA Medication/Allergy Home Medications: Morphine Sulfate [Ms Contin] 15 mg PO DAILY 07/17/19 Multivitamin [Multiple Vitamins] 1 tab PO DAILY 07/17/19 Oxycodone HCl/Acetaminophen [Percocet 10-325 mg Tablet] 1 tab PO 5XD 07/17/19 Allergies/Adverse Reactions: No Known Allergies Allergy (Verified 06/28/16 19:35) Review of Systems Review of Systems: Constitutional: ABSENT: anorexia, chills, night sweats Cardiovascular: ABSENT: chest pain Respiratory: ABSENT: dyspnea Gastrointestinal: ABSENT: vomiting Genitourinary: ABSENT: dysuria Integumentary: ABSENT: rash Neurological: ABSENT: confusion, memory loss, numbness Psychiatric: ABSENT: hallucinations Hematologic/Lymphatic: ABSENT: easy bleeding Physical Exam Vital Signs: Temp Pulse Resp BP Pulse Ox 98.2 F 94 16 145/74 H 95 07/18/19 19:13 07/18/19 19:13 07/18/19 19:13 07/18/19 19:13 07/18/19 19:13 Intake & Output 07/17/19 07/18/19 07/19/19 06:59 06:59 06:59 Intake Total 1206 720 Output Total 525 1200 700 Balance -525 6 20 Weight 71.7 kg 71.4 kg Physical Exam: General appearance: PRESENT: no acute distress, cooperative, well-nourished Head exam: PRESENT: atraumatic, normocephalic Eye exam: PRESENT: EOMI Ear exam: PRESENT: normal external ear exam Mouth exam: PRESENT: neck supple Neck exam: ABSENT: tracheal deviation Respiratory exam: PRESENT: symmetrical, unlabored. ABSENT: accessory muscle use, wheezes Pulses: PRESENT: normal radial pulses, normal dorsalis pedis pul Vascular exam: PRESENT: normal capillary refill GI/Abdominal exam: ABSENT: distended, firm Extremities exam: PRESENT: full ROM of bilateral shoulders, elbows wrists, knees, hips and ankles without pain Musculoskeletal exam: PRESENT: full ROM, normal inspection of all 4 extremities aside from that noted below. Neurological exam: PRESENT: alert, awake, oriented to person, oriented to place, oriented to time Psychiatric exam: PRESENT: appropriate affect. ABSENT: agitated Focused psych exam: ABSENT: catatonic Skin exam: PRESENT: intact. ABSENT: dry All as above aside from that noted in the HPI and the following: RUE Right upper extremity sensation grossly intact to radial median and ulnar nerve. Right upper extremity motor function grossly intact to radian median ulnar nerve AIN and PIN Pulses 2+, capillary refill less than 2 seconds No deformity noted full range of motion of the elbow shoulder wrist and fingers without pain Compartments soft, no tenderness to palpation skin intact, TTP ecchymosis over the hypthenar eminence. RLE -Pulses 2+ distally -Compartments soft -Sensation grossly intact to L3-4-5 S1 -Motor grossly intact to EHL TA gastroc and quad - Pain with log roll and axial compression on the right Normal LLE exam on the left. Results Laboratory Results: 07/17/19 05:29 07/17/19 05:29 07/16/19 12:10 Creatine Kinase 67 Impressions: Hip/Pelvis X-Ray 07/16/19 09:58 IMPRESSION: No acute fracture. Ribs w/Chest X-Ray 07/16/19 09:58 IMPRESSION: No pneumothorax. 7th right anterior rib fracture. New radiodensity having the appearance of a pulmonary nodule at the right base. Wrist X-Ray 07/16/19 09:58 IMPRESSION: NEGATIVE STUDY OF THE RIGHT WRIST. NO RADIOGRAPHIC EVIDENCE OF ACUTE INJURY. Pelvis CT 07/16/19 12:18 IMPRESSION: Nondisplaced fractures pubic symphysis on the right inferior pubic ramus on the left. Chest CT 07/16/19 12:20 IMPRESSION: 2 adjacent pulmonary nodules. Largest is 5.7 mm. Multiple thoracic compression fractures age indeterminate. Marked emphysema. Assessment & Plan - Diagnosis (1) Right wrist sprain Plan: Weight bearing as tolerated - PT/OT - Discharge planning pending his functional tolerance (2) Pelvic fracture Qualifiers: Encounter type: initial encounter Pelvic bone location: ischium Fracture type: closed Fracture morphology: unspecified fracture morphology Is this a current diagnosis for this admission?: Yes Plan: No ligamentous or bony instability on exam - WBAT - Acetaminophen for pain - May consider wrist splint for comfort.
[2019-07-19] MEDS: HYDROMORPHONE HCL INJ/PF 2 MG/ML AMPULE IV PRN ×5 (04:07→20:12)
[2019-07-19] MEDS: PANTOPRAZOLE SODIUM 40 MG TABLET.DR PO SCH ×2 (05:16→16:19)
[2019-07-19] MEDS: HEPARIN SOD (PORCINE) 5,000 UNIT/ML 1 ML VIAL SUBCUT SCH ×3 (05:16→21:36)
[2019-07-19] MEDS: OXYCODONE-ACETAMINOPHEN 5-325 MG TABLET PO SCH ×5 (06:48→22:26)
[2019-07-19] MEDS: OXYCODONE HCL IR 5 MG TABLET PO SCH ×5 (06:49→22:23)
[2019-07-19] MEDS: LIDOCAINE 5% (700 MG) TRANSDERMAL ADH..PATCH TP SCH (10:03)
[2019-07-19] MEDS: LACTULOSE SYRUP 20 GM/30 ML UDCUP PO SCH ×2 (10:05→18:09)
[2019-07-19] MEDS: MULTIVITAMIN TABLET PO SCH (10:06)
[2019-07-19] MEDS: DOCUSATE SODIUM 100 MG CAPSULE PO SCH ×2 (10:06→18:08)
[2019-07-19] MEDS: MORPHINE SULFATE SR 15 MG TABLET PO SCH (10:06)
[2019-07-19 10:17] LABS: ANION GAP 13 (5-19); BLOOD UREA NITROGEN 26 mg/dL (7-20); CARBON DIOXIDE 20 mmol/L (22-30); CHLORIDE 107 mmol/L (98-107); GLUCOSE 93 mg/dL (75-110); POTASSIUM 4.6 mmol/L (3.6-5.0)
--- NOTE | 2019-07-19 14:27 | PDOC PROGRESS REPORT ---
Subjective Progress Note for:: 07/19/19 Subjective:: She is doing much better today. He explains that he has been doing well with physical therapy and overall improving. He explains that he has been able to walk with much less pain than yesterday. He explains that the pain that he had in his right groin that he described as a muscle pull has been improving considerably. Reason For Visit: RIB FX S/P FALL Physical Exam Vital Signs: Temp Pulse Resp BP Pulse Ox 98.2 F 91 16 104/76 97 07/19/19 12:46 07/19/19 12:46 07/19/19 12:46 07/19/19 12:46 07/19/19 12:46 Intake & Output 07/18/19 07/19/19 07/20/19 06:59 06:59 06:59 Intake Total 1206 920 740 Output Total 1200 1875 Balance 6 -955 740 Weight 71.4 kg 71.5 kg Physical Exam: General appearance: PRESENT: no acute distress, cooperative, well-nourished Head exam: PRESENT: atraumatic, normocephalic Eye exam: PRESENT: EOMI Ear exam: PRESENT: normal external ear exam Mouth exam: PRESENT: neck supple Neck exam: ABSENT: tracheal deviation Respiratory exam: PRESENT: symmetrical, unlabored. ABSENT: accessory muscle use, wheezes Pulses: PRESENT: normal radial pulses, normal dorsalis pedis pul Vascular exam: PRESENT: normal capillary refill GI/Abdominal exam: ABSENT: distended, firm Extremities exam: PRESENT: full ROM of bilateral shoulders, elbows wrists, knees, hips and ankles without pain Musculoskeletal exam: PRESENT: full ROM, normal inspection of all 4 extremities aside from that noted below. Neurological exam: PRESENT: alert, awake, oriented to person, oriented to place, oriented to time Psychiatric exam: PRESENT: appropriate affect. ABSENT: agitated Focused psych exam: ABSENT: catatonic Skin exam: PRESENT: intact. ABSENT: dry All as above aside from that noted in the HPI and the following: RUE Right upper extremity sensation grossly intact to radial median and ulnar nerve. Right upper extremity motor function grossly intact to radian median ulnar nerve AIN and PIN Pulses 2+, capillary refill less than 2 seconds No deformity noted full range of motion of the elbow shoulder wrist and fingers without pain Compartments soft, no tenderness to palpation skin intact, TTP ecchymosis over the hypthenar eminence. RLE -Pulses 2+ distally -Compartments soft -Sensation grossly intact to L3-4-5 S1 -Motor grossly intact to EHL TA gastroc and quad - Pain with log roll and axial compression on the right Results Laboratory Results: 07/17/19 05:29 07/19/19 09:47 07/19/19 09:47 Sodium 139.9 Potassium 4.6 Chloride 107 Carbon Dioxide 20 L Anion Gap 13 BUN 26 H Creatinine 1.58 H Est GFR ( Amer) 55 L Glucose 93 Calcium 9.0 07/16/19 12:10 Creatine Kinase 67 Impressions: Hip/Pelvis X-Ray 07/16/19 09:58 IMPRESSION: No acute fracture. Ribs w/Chest X-Ray 07/16/19 09:58 IMPRESSION: No pneumothorax. 7th right anterior rib fracture. New radiodensity having the appearance of a pulmonary nodule at the right base. Wrist X-Ray 07/16/19 09:58 IMPRESSION: NEGATIVE STUDY OF THE RIGHT WRIST. NO RADIOGRAPHIC EVIDENCE OF ACUTE INJURY. Pelvis CT 07/16/19 12:18 IMPRESSION: Nondisplaced fractures pubic symphysis on the right inferior pubic ramus on the left. Chest CT 07/16/19 12:20 IMPRESSION: 2 adjacent pulmonary nodules. Largest is 5.7 mm. Multiple thoracic compression fractures age indeterminate. Marked emphysema. Assessment & Plan - Diagnosis (1) Right wrist sprain Is this a current diagnosis for this admission?: Yes Plan: Consider a cock-up wrist splint for symptomatic improvement. -May consider occupational therapy consult prior to discharge (2) Pelvic fracture Qualifiers: Encounter type: initial encounter Pelvic bone location: ischium Fracture type: closed Fracture morphology: unspecified fracture morphology Is this a current diagnosis for this admission?: Yes Plan: The patient is doing well. Continue weightbearing as tolerated and physical and occupational therapy while in house. Orthopedically stable for discharge when medically stable. - Time Time Spent with patient: Less than 15 minutes
--- NOTE | 2019-07-19 16:28 | PDOC PROGRESS REPORT ---
Subjective Progress Note for:: 07/19/19 Subjective:: ANNA ALFONSO is a 58 year old male past medical history of COPD, alcoholic cirrhosis, osteoporosis, vertebral compression fractures, chronic pain with opiate dependency, presented to ED complaining of right wrist right hip and right rib pain. Pain is started 1 day prior to arrival to ED after patient tripped over a cord and fell on his side, PT stating that he went to bed hoping that his pain improves however pain has been persistent and not controlled with his home morphine and Percocet. Patient has history of multiple vertebral compression fractures due to osteoporosis, and is on opiate chronically for pain management, patient is stating that since fall he has not been able to ambulate much, his right hip hurts when he tries to move, and it hurts when he tries to breathe or move. Patient says not sustain any head trauma, did not lose any consciousness, was not lightheaded or did not have any palpitations before the fall. Patient denies any fever, lightheadedness, chest pain, shortness of breath, nausea, abdominal pain, diarrhea, constipation or any urinary symptoms. 07/17/2019. No acute events overnight. Patient still complaining of right hip pain and right chest pain. Denies any fever, chills, nausea, vomiting, diarrhea or constipation. P.o. tolerant having normal bowel and bladder movements. 07/18/2019. No acute events overnight. Right chest and right pelvic pain or improving. Has not had a bowel movement since yesterday. Patient is still having elevated potassium. Refused Kayexalate yesterday. Denies any fever, chills, nausea, vomiting, diarrhea or any urinary symptoms. Patient is pending evaluation by orthopedic surgery. 07/19/2019. No acute events overnight. Pain improving. Able to ambulate with some assistance. Patient would like to be sent home with physical therapy rather than inpatient rehab. Patient ready to be discharged home once home physical therapy has been arranged. Reason For Visit: RIB FX S/P FALL Physical Exam Vital Signs: Temp Pulse Resp BP Pulse Ox 98.2 F 91 16 104/76 97 07/19/19 12:46 07/19/19 12:46 07/19/19 12:46 07/19/19 12:46 07/19/19 12:46 Intake & Output 07/18/19 07/19/1907/20/19 06:59 06:59 06:59 Intake Total 1206 920 740 Output Total 1200 1875 Balance 6 -955 740 Weight 71.4 kg 71.5 kg General appearance: PRESENT: no acute distress, well-developed, well-nourished Head exam: PRESENT: atraumatic, normocephalic Respiratory exam: PRESENT: clear to auscultation nick. ABSENT: rales, rhonchi, wheezes Cardiovascular exam: PRESENT: RRR. ABSENT: diastolic murmur, rubs, systolic murmur GI/Abdominal exam: PRESENT: normal bowel sounds, soft. ABSENT: distended, guarding, mass, organolmegaly, rebound, tenderness Extremities exam: PRESENT: full ROM - Left hip range of motion limited due to pain. Neurovascularly intact.. ABSENT: calf tenderness, clubbing, pedal edema Results Laboratory Results: 07/17/19 05:29 07/19/19 09:47 07/19/19 09:47 Sodium 139.9 Potassium 4.6 Chloride 107 Carbon Dioxide 20 L Anion Gap 13 BUN 26 H Creatinine 1.58 H Est GFR ( Amer) 55 L Glucose 93 Calcium 9.0 07/16/19 12:10 Creatine Kinase 67 Impressions: Hip/Pelvis X-Ray 07/16/19 09:58 IMPRESSION: No acute fracture. Ribs w/Chest X-Ray 07/16/19 09:58 IMPRESSION: No pneumothorax. 7th right anterior rib fracture. New radiodensity having the appearance of a pulmonary nodule at the right base. Wrist X-Ray 07/16/19 09:58 IMPRESSION: NEGATIVE STUDY OF THE RIGHT WRIST. NO RADIOGRAPHIC EVIDENCE OF ACUTE INJURY. Pelvis CT 07/16/19 12:18 IMPRESSION: Nondisplaced fractures pubic symphysis on the right inferior pubic ramus on the left. Chest CT 07/16/19 12:20 IMPRESSION: 2 adjacent pulmonary nodules. Largest is 5.7 mm. Multiple thoracic compression fractures age indeterminate. Marked emphysema. Assessment and Plan - Diagnosis (1) Pelvic fracture Qualifiers: Encounter type: initial encounter Pelvic bone location: ischium Fracture type: closed Fracture morphology: unspecified fracture morphology Is this a current diagnosis for this admission?: Yes Plan: Traumatic. Due to mechanical fall. Pelvis CT: Nondisplaced fractures, pubic symphysis on the right, inferior pubic rami on the left. Denies any focal neurological symptoms. Bilateral lower extremity neurovascularly intact. Range of motion limited by pain. PT/OT supportive measures. Opioid and non-opioid analgesics. Orthopedic surgeon consulted. Recommendations noted. Plan is to discharge home with home physical therapy. Patient does not want to go to inpatient rehab. (2) Chronic pain syndrome Is this a current diagnosis for this admission?: Yes Plan: History of multiple vertebral fractures due to osteoporosis. Sees Dr. Armenta at pain clinic as outpatient. Home meds are: MS Contin 15 mg p.o. daily. Percocet 103 2 5 p.o. 5 times daily. Restart home meds. Fall precaution. Monitor for respiratory depression. (3) Rib fracture Qualifiers: Encounter type: initial encounter Rib fracture type: single rib Fracture type: closed Laterality: right Qualified Code(s): S22.31XA - Fracture of one rib, right side, initial encounter for closed fracture Is this a current diagnosis for this admission?: Yes Plan: Improving. Traumatic. Due to mechanical fall. No pneumothorax. Topical lidocaine. Encourage ambulation and breathing. Incentive spirometer. Limit opioids provide respiratory depression and development of atelectasis and pneumonia. Monitor vitals. (4) COPD (chronic obstructive pulmonary disease) Qualifiers: COPD type: emphysema Is this a current diagnosis for this admission?: Yes Plan: Does not seem to be exacerbated. Not on home O2. History of heavy smoking. Supplemental oxygen, PRN duo nebs, PRN BiPAP, restart home meds. (5) Tobacco abuse Is this a current diagnosis for this admission?: Yes Plan: Advised on cutting. Lidocaine patch will be provided. (6) Alcoholic cirrhosis Qualifiers: Ascites presence: without ascites Qualified Code(s): K70.30 - Alcoholic cirrhosis of liver without ascites Is this a current diagnosis for this admission?: Yes Plan: History of alcoholic cirrhosis. History of heavy alcohol abuse. Drinks occasionally twice per month. Platelets WNL. Albumin WNL. T bili and liver chemistries WNL. Alert oriented x3. No sign of bleeding. Restart home meds. Outpatient PCP and gastroenterology follow-up. (7) CKD (chronic kidney disease) stage 3, GFR 30-59 ml/min Is this a current diagnosis for this admission?: Yes Plan: Nonoliguric. Denies any uremic symptoms. Electrolytes WNL. Creatinine back to baseline. Monitor electrolytes and volume status, avoid nephrotoxic meds. Outpatient PCP and nephrology follow-up. (8) Hyperkalemia Is this a current diagnosis for this admission?: Yes Plan: Resolved. (9) Pulmonary nodules Is this a current diagnosis for this admission?: Yes Plan: Updated patient. As per patient he has had nodules in his lungs for the last 35 years, he was told this time he was about 5 mm. Stating that he has had extensive work-up including TB as outpatient. CT chest: Positive for 2 adjacent pulmonary nodules largest 5.7 mm right lower lobe. Outpatient pulmonary follow-up.
[2019-07-20] MEDS: HYDROMORPHONE HCL INJ/PF 2 MG/ML AMPULE IV PRN ×3 (00:39→09:01)
[2019-07-20] MEDS: HEPARIN SOD (PORCINE) 5,000 UNIT/ML 1 ML VIAL SUBCUT SCH ×2 (05:01→15:15)
[2019-07-20] MEDS: PANTOPRAZOLE SODIUM 40 MG TABLET.DR PO SCH (05:01)
[2019-07-20] MEDS: OXYCODONE HCL IR 5 MG TABLET PO SCH ×3 (07:35→15:46)
[2019-07-20] MEDS: OXYCODONE-ACETAMINOPHEN 5-325 MG TABLET PO SCH ×3 (07:36→15:47)
[2019-07-20] MEDS: DOCUSATE SODIUM 100 MG CAPSULE PO SCH (09:03)
[2019-07-20] MEDS: MORPHINE SULFATE SR 15 MG TABLET PO SCH (09:03)
[2019-07-20] MEDS: LACTULOSE SYRUP 20 GM/30 ML UDCUP PO SCH (09:03)
[2019-07-20] MEDS: MULTIVITAMIN TABLET PO SCH (09:04)
[2019-07-20] MEDS: LIDOCAINE 5% (700 MG) TRANSDERMAL ADH..PATCH TP SCH (09:04)
[2019-07-20] MEDS ORDERED: LISINOPRIL 5 MG TABLET PO SCH (10:45)
[2019-07-20] MEDS ORDERED: HYDRALAZINE HCL INJ/PF 20 MG/1 ML SDV IV ONE ×3 (11:30→17:00)
[2019-07-20] MEDS ORDERED: AMLODIPINE BESYLATE 2.5 MG TABLET PO SCH (12:00)
[2019-07-20] MEDS ORDERED: AMLODIPINE BESYLATE 2.5 MG TABLET PO ONE (15:30)
[2019-07-20 15:41] LABS: ABSOLUTE BASOPHILS # (AUTO) 0.1 10^3/uL (0.0-0.2); ABSOLUTE EOSINOPHILS # (AUTO) 0.1 10^3/uL (0.0-0.6); ABSOLUTE LYMPHOCYTES (AUTO) 0.8 10^3/uL (0.5-4.7); ABSOLUTE MONOCYTES (AUTO) 0.6 10^3/uL (0.1-1.4); ABSOLUTE NEUT (AUTO) 7.9 10^3/uL (1.7-8.2); EOSINOPHILS % (AUTO) 0.7 % (0-6); HEMATOCRIT 34.4 % (37.9-51.0); HEMOGLOBIN 11.7 g/dL (13.5-17.0); LYMPHOCYTES % (AUTO) 8.2 % (13-45); MEAN CORPUSCULAR HEMOGLOBIN 29.8 pg (27.0-33.4); MEAN CORPUSCULAR HGB CONC 33.8 g/dL (32.0-36.0); MEAN CORPUSCULAR VOLUME 88 fl (80-97); MONOCYTES % (AUTO) 6.7 % (3-13); PLATELET COUNT 329 10^3/uL (150-450); RED BLOOD COUNT 3.91 10^6/uL (4.35-5.55); RED CELL DISTRIBUTION WIDTH 14.2 % (11.5-14.0); SEGMENTED NEUTROPHILS % (AUTO) 83.4 % (42-78); TOTAL CELLS COUNTED % (AUTO) 100 %; WHITE BLOOD COUNT 9.4 10^3/uL (4.0-10.5)
[2019-07-20 16:01] LABS: ANION GAP 14 (5-19); BLOOD UREA NITROGEN 28 mg/dL (7-20); CALCIUM 9.8 mg/dL (8.4-10.2); CARBON DIOXIDE 21 mmol/L (22-30); CHLORIDE 104 mmol/L (98-107); GLUCOSE 96 mg/dL (75-110); POTASSIUM 4.6 mmol/L (3.6-5.0)
[2019-07-20 17:41] VITALS: BP 148/48
--- NOTE | 2019-07-20 18:23 | PDOC DISCHARGE SUMMARY ---
Impression - Admit/DC Date/PCP Admission Date/Primary Care Provider: 07/17/19 11:23 EYAL FUNG MD Discharge Date: 07/20/19 - Discharge Diagnosis (1) Pelvic fracture Is this a current diagnosis for this admission?: Yes (2) Chronic pain syndrome Is this a current diagnosis for this admission?: Yes (3) Rib fracture Is this a current diagnosis for this admission?: Yes (4) COPD (chronic obstructive pulmonary disease) Is this a current diagnosis for this admission?: Yes (5) Tobacco abuse Is this a current diagnosis for this admission?: Yes (6) Alcoholic cirrhosis Is this a current diagnosis for this admission?: Yes (7) CKD (chronic kidney disease) stage 3, GFR 30-59 ml/min Is this a current diagnosis for this admission?: Yes (8) Hyperkalemia Is this a current diagnosis for this admission?: Yes (9) Pulmonary nodules Is this a current diagnosis for this admission?: Yes - Additional Information Discharge Diet: Regular Discharge Activity: Activity As Tolerated, No Driving Referrals: EYAL FUNG MD [Primary Care Provider] - (Office is curretly closed. Left message for office to call to schedule appointment.) LEONARD EBLL PA-C [ALLIED HEALTH PROFESSIONAL] - Follow up as needed Prescriptions: Amlodipine Besylate [Norvasc 5 mg Tablet] 5 mg PO DAILY 30 Days #30 tablet Home Medications: Morphine Sulfate [Ms Contin] 15 mg PO DAILY 07/17/19 Multivitamin [Multiple Vitamins] 1 tab PO DAILY 07/17/19 Oxycodone HCl/Acetaminophen [Percocet 10-325 mg Tablet] 1 tab PO 5XD 07/17/19 Amlodipine Besylate [Norvasc 5 mg Tablet] 5 mg PO DAILY 30 Days #30 tablet 07/20/19 History of Present Illiness History of Present Illness: ANNA ALFONSO is a 58 year old male past medical history of COPD, alcoholic cirrhosis, osteoporosis, vertebral compression fractures, chronic pain with opiate dependency, presented to ED complaining of right wrist right hip and right rib pain. Pain is started 1 day prior to arrival to ED after patient tripped over a cord and fell on his side, PT stating that he went to bed hoping that his pain improves however pain has been persistent and not controlled with his home morphine and Percocet. Patient has history of multiple vertebral compression fractures due to osteoporosis, and is on opiate chronically for pain management, patient is stating that since fall he has not been able to ambulate much, his right hip hurts when he tries to move, and it hurts when he tries to breathe or move. Patient says not sustain any head trauma, did not lose any consciousness, was not lightheaded or did not have any palpitations before the fall. Patient denies any fever, lightheadedness, chest pain, shortness of breath, nausea, abdominal pain, diarrhea, constipation or any urinary symptoms. Hospital Course Hospital Course: (1) Pelvic fracture Traumatic. Due to mechanical fall. Pelvis CT: Nondisplaced fractures, pubic symphysis on the right, inferior pubic rami on the left. Denies any focal neurological symptoms. Bilateral lower extremity neurovascularly intact. Range of motion limited by pain. PT/OT supportive measures. Opioid and non-opioid analgesics. Orthopedic surgeon consulted. Recommendations noted. Plan is to discharge home with home physical therapy. Patient does not want to go to inpatient rehab. (2) Chronic pain syndrome History of multiple vertebral fractures due to osteoporosis. Sees Dr. Armenta at pain clinic as outpatient. Home meds are: MS Contin 15 mg p.o. daily. Percocet 103 2 5 p.o. 5 times daily. Restart home meds. Fall precaution. Monitor for respiratory depression. (3) Rib fracture Improving. Traumatic. Due to mechanical fall. No pneumothorax. Topical lidocaine. Encourage ambulation and breathing. Incentive spirometer. Limit opioids provide respiratory depression and development of atelectasis and pneumonia. Monitor vitals. (4) COPD (chronic obstructive pulmonary disease) Does not seem to be exacerbated. Not on home O2. History of heavy smoking. Supplemental oxygen, PRN duo nebs, PRN BiPAP, restart home meds. (5) Tobacco abuse Advised on cutting. Lidocaine patch will be provided. (6) Alcoholic cirrhosis History of alcoholic cirrhosis. History of heavy alcohol abuse. Drinks occasionally twice per month. Platelets WNL. Albumin WNL. T bili and liver chemistries WNL. Alert oriented x3. No sign of bleeding. Restart home meds. Outpatient PCP and gastroenterology follow-up. (7) CKD (chronic kidney disease) stage 3, GFR 30-59 ml/min Nonoliguric. Denies any uremic symptoms. Electrolytes WNL. Creatinine back to baseline. Monitor electrolytes and volume status, avoid nephrotoxic meds. Outpatient PCP and nephrology follow-up. (8) Hyperkalemia Resolved. (9) Pulmonary nodules Updated patient. As per patient he has had nodules in his lungs for the last 35 years, he was told this time he was about 5 mm. Stating that he has had extensive work-up including TB as outpatient. CT chest: Positive for 2 adjacent pulmonary nodules largest 5.7 mm right lower lobe. Outpatient pulmonary follow-up. Physical Exam Vital Signs: Temp Pulse Resp BP Pulse Ox 98.2 F 96 16 148/48 H 100 07/20/19 17:49 07/20/19 17:49 07/20/19 17:49 07/20/19 17:49 07/20/19 17:49 Intake & Output 07/19/19 07/20/19 07/21/19 06:59 06:59 06:59 Intake Total 920 1205 465 Output Total 1875 Balance -955 1205 465 Weight 71.5 kg 72.5 kg General appearance: PRESENT: no acute distress, well-developed, well-nourished Respiratory exam: PRESENT: clear to auscultation nick. ABSENT: rales, rhonchi, wheezes Cardiovascular exam: PRESENT: RRR. ABSENT: diastolic murmur, rubs, systolic murmur GI/Abdominal exam: PRESENT: normal bowel sounds, soft. ABSENT: distended, guarding, mass, organolmegaly, rebound, tenderness Musculoskeletal exam: PRESENT: full ROM - Limited AROM due pain. Neurovasc ularly intact., tenderness Neurological exam: PRESENT: alert, awake, oriented to person, oriented to place, oriented to time, oriented to situation, CN II-XII grossly intact. ABSENT: motor sensory deficit Results Laboratory Results: WBC 9.4 10^3/uL (4.0-10.5) 07/20/19 14:38 RBC 3.91 10^6/uL (4.35-5.55) L 07/20/19 14:38 Hgb 11.7 g/dL (13.5-17.0) L 07/20/19 14:38 Hct 34.4 % (37.9-51.0) L 07/20/19 14:38 MCV 88 fl (80-97) 07/20/19 14:38 MCH 29.8 pg (27.0-33.4) 07/20/19 14:38 MCHC 33.8 g/dL (32.0-36.0) 07/20/19 14:38 RDW 14.2 % (11.5-14.0) H 07/20/19 14:38 Plt Count 329 10^3/uL (150-450) 07/20/19 14:38 Lymph % (Auto) 8.2 % (13-45) L 07/20/19 14:38 [place] % (Auto) 6.7 % (3-13) 07/20/19 14:38 Eos % (Auto) 0.7 % (0-6) 07/20/19 14:38 Baso % (Auto) 1.0 % (0-2) 07/20/19 14:38 Absolute Neuts (auto) 7.9 10^3/uL (1.7-8.2) 07/20/19 14:38 Absolute Lymphs (auto) 0.8 10^3/uL (0.5-4.7) 07/20/19 14:38 Absolute Monos (auto) 0.6 10^3/uL (0.1-1.4) 07/20/19 14:38 Absolute Eos (auto) 0.1 10^3/uL (0.0-0.6) 07/20/19 14:38 Absolute Basos (auto) 0.1 10^3/uL (0.0-0.2) 07/20/19 14:38 Seg Neutrophils % 83.4 % (42-78) H 07/20/19 14:38 Sodium 138.9 mmol/L (137-145) 07/20/19 14:38 Potassium 4.6 mmol/L (3.6-5.0) 07/20/19 14:38 Chloride 104 mmol/L (98-107) 07/20/19 14:38 Carbon Dioxide 21 mmol/L (22-30) L 07/20/19 14:38 Anion Gap 14 (5-19) 07/20/19 14:38 BUN 28 mg/dL (7-20) H 07/20/19 14:38 Creatinine 1.80 mg/dL (0.52-1.25) H 07/20/19 14:38 Est GFR ( Amer) 47 (>60) L 07/20/19 14:38 Est GFR (MDRD) Non-Af 39 (>60) L 07/20/19 14:38 Glucose 96 mg/dL (75-110) 07/20/19 14:38 Calcium 9.8 mg/dL (8.4-10.2) 07/20/19 14:38 Phosphorus 3.9 mg/dL (2.5-4.5) 07/17/19 05:29 Magnesium 2.1 mg/dL (1.6-2.3) 07/17/19 05:29 Total Bilirubin 0.7 mg/dL (0.2-1.3) 07/17/19 05:29 Direct Bilirubin 0.2 mg/dL (0.0-0.4) 07/17/19 05:29 Neonat Total Bilirubin Not Reportable 07/17/19 05:29 Neonat Direct Bilirubin Not Reportable 07/17/19 05:29 Neonat Indirect Bili Not Reportable 07/17/19 05:29 AST 25 U/L (17-59) 07/17/19 05:29 ALT 11 U/L (<50) 07/17/19 05:29 Alkaline Phosphatase 138 U/L (38-126) H 07/17/19 05:29 Creatine Kinase 67 U/L (55-170) 07/16/19 12:10 Total Protein 7.6 g/dL (6.3-8.2) 07/17/19 05:29 Albumin 3.9 g/dL (3.5-5.0) 07/17/19 05:29 Urine Color STRAW 07/16/19 11:43 Urine Appearance CLEAR 07/16/19 11:43 Urine pH 6.0 (5.0-9.0) 07/16/19 11:43 Ur Specific [place] 1.005 07/16/19 11:43 Urine Protein NEGATIVE mg/dL (NEGATIVE) 07/16/19 11:43 Urine Glucose (UA) NEGATIVE mg/dL (NEGATIVE) 07/16/19 11:43 Urine Ketones NEGATIVE mg/dL (NEGATIVE) 07/16/19 11:43 Urine Blood SMALL (NEGATIVE) H 07/16/19 11:43 Urine Nitrite (Reflex) NEGATIVE (NEGATIVE) 07/16/19 11:43 Urine Bilirubin NEGATIVE (NEGATIVE) 07/16/19 11:43 Urine Urobilinogen NEGATIVE mg/dL (<2.0) 07/16/19 11:43 Leukocyte Esterase Rfl NEGATIVE (NEGATIVE) 07/16/19 11:43 Urine RBC (Auto) 1 /HPF 07/16/19 11:43 Urine WBC (Reflex) < 1 /HPF 07/16/19 11:43 Urine Ascorbic Acid NEGATIVE (NEGATIVE) 07/16/19 11:43 Urine Opiates Screen UNCONFIRMED POSITIVE 07/16/19 11:43 Urine Methadone Screen NEGATIVE 07/16/19 11:43 Ur Barbiturates Screen NEGATIVE 07/16/19 11:43 Ur Phencyclidine Scrn NEGATIVE 07/16/19 11:43 Ur Amphetamines Screen NEGATIVE 07/16/19 11:43 U Benzodiazepines Scrn NEGATIVE 07/16/19 11:43 Urine Cocaine Screen NEGATIVE 07/16/19 11:43 U Marijuana (THC) Screen NEGATIVE 07/16/19 11:43 Serum Alcohol < 10 mg/dL (NONE DETECTED) 07/16/19 12:10 Impressions: Hip/Pelvis X-Ray 07/16/19 09:58 IMPRESSION: No acute fracture. Ribs w/Chest X-Ray 07/16/19 09:58 IMPRESSION: No pneumothorax. 7th right anterior rib fracture. New radiodensity having the appearance of a pulmonary nodule at the right base. Wrist X-Ray 07/16/19 09:58 IMPRESSION: NEGATIVE STUDY OF THE RIGHT WRIST. NO RADIOGRAPHIC EVIDENCE OF ACUTE INJURY. Pelvis CT 07/16/19 12:18 IMPRESSION: Nondisplaced fractures pubic symphysis on the right inferior pubic ramus on the left. Chest CT 07/16/19 12:20 IMPRESSION: 2 adjacent pulmonary nodules. Largest is 5.7 mm. Multiple thoracic compression fractures age indeterminate. Marked emphysema. Stroke Is this a Stroke Patient?: No Acute Heart Failure - Is this a Heart Failure Patient?: No
[2019-07-20] MEDS ORDERED: PHARMACY COMMUNICATION ORDER MC SCH (22:00)
== END 2019-07-20 18:36 | disposition home or self-care (01) | DRG 948 ==
LOC: ER 09:36 → EH 14:44 → INTOOBSV 14:44 → 4S 17:06 → OBSVTOIN 07-17 11:23
PROVIDERS: ADMIT Internal Medicine; ATTEND Internal Medicine
DX: G89.11 Acute pain due to trauma (principal); S32.591A Other specified fracture of right pubis, initial encounter for closed fracture; S22.31XA Fracture of one rib, right side, initial encounter for closed fracture; F11.20 Opioid dependence, uncomplicated; S32.592A Other specified fracture of left pubis, initial encounter for closed fracture; S63.501A Unspecified sprain of right wrist, initial encounter; W01.0XXA Fall on same level from slipping, tripping and stumbling without subsequent striking against object, initial encounter; Z87.310 Personal history of (healed) osteoporosis fracture; N18.3 Chronic kidney disease, stage 3 (moderate); Y92.003 Bedroom of unspecified non-institutional (private) residence as the place of occurrence of the external cause; K70.30 Alcoholic cirrhosis of liver without ascites; J43.9 Emphysema, unspecified; F10.20 Alcohol dependence, uncomplicated; M81.0 Age-related osteoporosis without current pathological fracture; G89.4 Chronic pain syndrome; F17.200 Nicotine dependence, unspecified, uncomplicated; E87.5 Hyperkalemia; R91.8 Other nonspecific abnormal finding of lung field
CPT/HCPCS: 36415; 71260; 72192; 80048; 80053; 80307; 81001; 82550; 83735; 84100; 85025; 93005; 93010; 94640; 99285; G0378; J0360; J0610; J1170; J1644; J3010; J3490; J7620

== ENCOUNTER 2019-08-23 09:41 | Emergency (ER) | payer MEDICAID ==
--- NOTE | 2019-08-23 11:21 | RADIOLOGY REPORT (SQ) ---
EXAM DESCRIPTION: L SPINE WHOLE COMPLETED DATE/TIME: 08/23/2019 10:45 am REASON FOR STUDY: fall bone tenderness COMPARISON: CT pelvis 07/16/2019 Kyphopasty 07/30/2018 Lumbar spine plain films 01/22/2017 NUMBER OF VIEWS: Five views including obliques. TECHNIQUE: AP, lateral, oblique, and sacral radiographic images acquired of the lumbar spine. LIMITATIONS: None. FINDINGS: MINERALIZATION: Osteopenic SEGMENTATION: Normal. No transitional anatomy. ALIGNMENT: Normal. VERTEBRAE: Chronic 50% compression at L4 treated with kyphoplasty on 07/30/2018. There are subacute to chronic appearing upper endplate compressions at T12, L2, and L3 which are new or progressive since 01/22/2017 lumbar spine plain films. Consider follow-up MRI to evaluate whether t here is marrow edema at any at these levels which would indicate subacute compression fracture. DISCS: High-grade disc space loss of height at L5-S1, similar compared to prior studies POSTERIOR ELEMENTS: Lower lumbar facet arthropathy. No gross pars defects. HARDWARE: None in the spine. PARASPINAL SOFT TISSUES: Normal. PELVIS: SI joints intact. OTHER: No other significant finding. IMPRESSION: Subacute/chronic appearing upper endplate compressions at T12, L2, and L3. Consider MRI for follow-up. Old kyphoplasty at L4 TECHNICAL DOCUMENTATION: JOB ID: [id number] [employer]- All Rights Reserved Reading location - IP/workstation name: [email or web address]
[2019-08-23] MEDS ORDERED: MORPHINE SULFATE 10 MG/ML INJ IM ONE (12:31)
--- NOTE | 2019-08-23 13:10 | ER Document Report ---
Entered by BRITTANY WARD SCRIBE 08/23/19 1230 Acting as scribe for:MIRANDA SAMUELS IV, MD ED Neck/Back Problem - General Chief Complaint: Back Pain Stated Complaint: FALL/BACK PAIN Time Seen by Provider: 08/23/19 12:05 Primary Care Provider: EYAL FUNG MD [Primary Care Provider] - Follow up as needed Information source: Patient Notes: This 58-year-old male patient with a history of chronic pain syndrome with chronic low back pain presents to the emergency department today with complaints of low back pain. Patient mentions that last he had a fall and fractured his pelvis which is obviously not new today. When the patient was asked what is new or different that brought him into the emergency department today he mentions that he had a fall this morning. Patient states that since this pelvis fracture over he has had to ambulate with a walker and this morning when he was reaching down to grab his walker he "must have grabbed onto the wrong side", stating that it tipped over and he fell landing on his box spring. Patient states his lower back/hip are the areas that made contact with the box spring. Patient also is requesting some type of help in setting up in home rehab or physical therapy. TRAVEL OUTSIDE OF THE [place] IN LAST 30 DAYS: No - Related Data Allergies/Adverse Reactions: No Known Allergies Allergy (Verified 06/28/16 19:35) Past Medical History - General Information source: Patient, [facility] Records - Social History Smoking Status: Current Every Day Smoker Cigarette use (# per day): Yes Frequency of alcohol use: None Drug Abuse: None Lives with: Family Family History: Reviewed & Not Pertinent, COPD Patient has suicidal ideation: No Patient has homicidal ideation: No Pulmonary Medical History: Reports: Hx COPD GI Medical History: Reports: Hx Cirrhosis - Considered end-stage Traumatic Medical History: Reports: Hx Fractures - H Past Surgical History: Reports: Hx Orthopedic Surgery - R femur ava. Denies: Hx Open Heart Surgery, Hx Pacemaker - Immunizations Hx Diphtheria, Pertussis, Tetanus Vaccination: Yes Hx Pneumococcal Vaccination: 08/19/15 Review of Systems - Review of Systems Constitutional: No symptoms reported EENT: No symptoms reported Cardiovascular: No symptoms reported Respiratory: No symptoms reported Gastrointestinal: No symptoms reported Genitourinary: No symptoms reported Male Genitourinary: No symptoms reported Musculoskeletal: See HPI, Back pain Skin: No symptoms reported Hematologic/Lymphatic: No symptoms reported Neurological/Psychological: No symptoms reported -: Yes All other systems reviewed and negative Physical Exam - Vital signs Vitals: Temp Pulse Resp BP Pulse Ox 98.2 F 99 18 180/97 H 100 08/23/19 09:42 08/23/19 09:42 08/23/19 09:42 08/23/19 09:42 08/23/19 09:42 - Notes Notes: Physical Exam: General: Alert, appears chronically ill, older than stated age. HEENT: Normocephalic. Atraumatic. PERRL. Extraocular movements intact. Oropharynx clear. Neck: Supple. Non-tender. Respiratory: No respiratory distress. Clear and equal breath sounds bilaterally. Cardiovascular: Regular rate and rhythm. Abdominal: Normal Inspection. Non-tender. No distension. Normal Bowel Sounds. Back: Diffuse lower back tenderness with palpation without step-off or deformity. No crepitus. Extremities: Moves all four extremities. Upper extremities: Normal inspection. Normal ROM. Lower extremities: Normal inspection. No edema. Normal ROM. Neurological: Normal cognition. AAOx4. Normal speech. Psychological: Normal affect. Normal Mood. Skin: Warm. Dry. Normal color. Course - Re-evaluation Re-evalutation: 08/23/19 13:12 Results of ED MSE discussed with patient. All questions were answered prior to discharge. When asked if everything about the patient's ED visit was explained in a manner he understood, patient answered in the affirmative. Emergency signs and symptoms, reasons to return to the ER discussed with the patient. - Vital Signs Vital signs: Temp Pulse Resp BP Pulse Ox 98.4 F 82 16 151/82 H 100 08/23/19 13:37 08/23/19 13:37 08/23/19 13:37 08/23/19 13:37 08/23/19 13:37 - Diagnostic Test Radiology reviewed: Reports reviewed Discharge - Discharge Clinical Impression: Accidental fall Qualifiers: Encounter type: initial encounter Qualified Code(s): W19.XXXA - Unspecified fall, initial encounter Back contusion Qualifiers: Encounter type: initial encounter Laterality: unspecified laterality Qualified Code(s): S20.229A - Contusion of unspecified back wall of thorax, initial encounter Condition: Good Disposition: HOME, SELF-CARE Additional Instructions: Return to the Emergency Department without delay if any worse. Contusion Your injury has resulted in a contusion -- a crushing of the deep tissues. No injury to important structures was detected during the physician's exam. Contusions vary in the amount of pain they cause, and in the length of time required for healing. Typically, the area will become bruised, and will remain painful to touch for two or three weeks. However, most patients are back to working and playing within a few days. After the initial period of rest and cold-packs, your symptoms (together with the doctor's recommendations) will determine how rapidly you can get back to full activity. Usually this means "do what feels okay, but don't do things that hurt." If re-examination was recommended, it's important to follow up as instructed. Call the doctor or return any time if pain increases, if swelling becomes severe, if you develop numbness or weakness in an injured extremity, or if any other alarming symptoms occur. HOME CARE INSTRUCTIONS & INFORMATION: Thank you for choosing us for your medical needs. We hope you're satisfied with the care you received. After you leave, you must properly care for your problem and, at the same time, observe its progress. Any condition can change. Some illnesses can change rapidly over hours or days. If your condition worsens, return to the Emergency Department or see your physician promptly. ABOUT YOUR X-RAYS AND EKG'S: If you had an EKG or X-rays taken, they have been read by the Emergency Physician. The X-rays and EKG's will also be read by a Radiologist or Casing Cleaner within 24 hours. If discrepancies are noted, you will be notified by telephone. Please be certain the ED has a correct telephone number & address where you can be reached. Also, realize that some fractures or abnormalities do not show up on initial X-rays. If your symptoms continue, see your physician. ABOUT YOUR LABORATORY TEST: If you had laboratory tests, the results have been reviewed by the Emergency Physician. Some test results (for example cultures) may not be available for several days. You will be contacted if any test result shows you need additional treatment. Please be certain the ED has a correct telephone number and address where you can be reached. ABOUT YOUR MEDICATIONS: You will receive instructions on how to take your medicine on the prescription label you receive. Additional information may be provided by the Pharmacy. If you have questions afterwards, call the ED for clarification or further instructions. Some prescribed medications may cause drowsiness. Do not perform tasks such as driving a car or operating machinery without consulting your Pharmacist. If you feel you need a refill of pain medication, your condition will need re-evaluation. Please do not call for a refill of any medication. ABOUT YOUR SIGNATURE: Signature of this document acknowledges to followin. Understanding that you received emergency treatment and that you may be released before al medical problems are known or treated. Please be certain the ED has a correct phone number & address where you can be reached. 2. Acknowledgement that you will arrange for follow-up care as recommended. 3. Authorization for the Emergency Physician to provide information to your follow-up Physician in order to maximize your care. AT ANY TIME, IF YOUR SYMPTOMS CHANGE SIGNIFICANTLY OR WORSEN OR YOU DEVELOP NEW SYMPTOMS, RETURN TO THE EMERGENCY DEPARTMENT IMMEDIATELY FOR RE-EVALUATION. OUR GOAL IS TO PROVIDE EXCELLENT MEDICAL CARE! WE HOPE THAT WE HAVE MET YOUR EXPECTATIONS DURING YOUR EMERGENCY DEPARTMENT VISIT AND THAT YOU FEEL YOU HAVE RECEIVED EXCELLENT CARE! Referrals: EYAL FUNG MD [Primary Care Provider] - Follow up as needed I personally performed the services described in the documentation, reviewed and edited the documentation which was dictated to the scribe in my presence, and it accurately records my words and actions.
[2019-08-23 13:38] VITALS: BP 151/82
== END 2019-08-23 14:08 | disposition home or self-care (01) ==
LOC: ER 09:41
DX: S20.229A Contusion of unspecified back wall of thorax, initial encounter (principal); W18.39XA Other fall on same level, initial encounter; G89.29 Other chronic pain; M54.5 Low back pain; F17.210 Nicotine dependence, cigarettes, uncomplicated; J44.9 Chronic obstructive pulmonary disease, unspecified
CPT/HCPCS: 99283; 96372; 72110; J2270

== ENCOUNTER → 2019-09-21 | Outpatient (CLI) | payer MEDICAID ==
--- NOTE | 2019-09-21 10:35 | RADIOLOGY REPORT (SQ) ---
EXAM DESCRIPTION: U/S ABDOMEN LIMITED W/O DOP COMPLETED DATE/TIME: 09/21/2019 9:39 am REASON FOR STUDY: ALCOHOLIC CIRRHOSIS OF LIVER WITH ASCITES K70.31 ALCOHOLIC CIRRHOSIS OF LIVER WIT H ASCITES COMPARISON: None. TECHNIQUE: Dynamic and static grayscale images acquired of the right upper quadrant and recorded on PACS. Additional selected color Doppler and spectral images recorded. LIMITATIONS: Study limited due to acoustical interference from fat or from air in the bowel. FINDINGS: PANCREAS: Visualized pancreas and duct normal. Parts of pancreas poorly seen secondary to acoustical interference from fat or from air in the bowel. LIVER: Mildly nodular contour. Somewhat small, less than 12 cm. No mass detected. LIVER VASCULATURE: Normal directional flow of the main portal vein and hepatic veins. GALLBLADDER: Distended but otherwise normal. ULTRASOUND-DETECTED MIJARES'S SIGN: Negative. INTRAHEPATIC DUCTS AND COMMON DUCT: Bile duct up to 9 mm, similar. No stones detected. INFERIOR VENA CAVA: Normal flow. AORTA: Atherosclerotic without aneurysm. RIGHT KIDNEY: Echogenic. No obstruction or mass. Mild cortical thinning diffusely. PERITONEAL CAVITY AND RIGHT PLEURAL SPACE: No ascites or effusions. OTHER: No other significant finding. IMPRESSION: 1. Relatively chronic appearing changes as above. Includes mildly heterogeneous diminutive liver, di stended gallbladder without acute gallbladder findings and mild common duct prominence. TECHNICAL DOCUMENTATION: JOB ID: [id number] [employer]- All Rights Reserved Reading location - IP/workstation name: [email or web address]
== END ==
LOC: RAD 09:04
PROVIDERS: ATTEND Internal Medicine Gastroenterology
DX: K70.31 Alcoholic cirrhosis of liver with ascites (principal)
CPT/HCPCS: 76705

== ENCOUNTER → 2020-03-21 | Outpatient (CLI) | payer MEDICAID ==
[2020-03-21 16:21] LABS: INTERNATIONAL RATION (INR) 1.08; PROTHROMBIN TIME 14.2 SEC (11.4-15.4)
== END ==
LOC: OD 15:05
PROVIDERS: ATTEND Physician Assistant
DX: K70.30 Alcoholic cirrhosis of liver without ascites (principal)
CPT/HCPCS: 36415; 85610